=== PATIENT | female | born 1975 | race Caucasian/White ===

== ENCOUNTER 2016-06-22 17:15 | Observation (INO) | payer OTHER, MEDICAID ==
--- NOTE | 2016-06-22 17:56 | DR.H&P ---
H&P - History & Physical for Day of: H&P Date: 06/22/16 - Chief Complaint Chief Complaint: ABD PAIN WITH EPIGASTRIC AND RLQ PAIN - Allergies Allergies/Adverse Reactions: Allergies Allergy/AdvReac Type Severity Reaction Status Date / Time Ciprofloxacin [From Cipro] Allergy Verified 05/07/16 14:04 Doxycycline Allergy Verified 05/07/16 14:10 Gentamicin Allergy Verified 05/07/16 14:10 Iodine Allergy Verified 05/07/16 14:10 Latex Allergy Verified 05/07/16 14:10 Levofloxacin [From Levaquin] Allergy Verified 05/07/16 14:10 Linezolid [From Zyvox] Allergy Verified 05/07/16 14:10 Penicillins Allergy Verified 05/07/16 14:10 Pineapple Allergy Verified 05/07/16 14:10 Pseudoephedrine Allergy Verified 05/07/16 14:10 [From Sudafed] Shellfish Allergy Allergy Verified 05/07/16 14:10 Shrimp Flavor Allergy Verified 05/07/16 14:10 Sulfa Antibiotics Allergy Verified 05/07/16 14:10 Tetracycline Allergy Verified 05/07/16 14:10 Tobramycin Allergy Verified 05/07/16 14:10 adhesive tape Allergy Uncoded 05/07/16 14:10 description Allergy Uncoded 05/07/16 14:10 pears Allergy Uncoded 05/07/16 14:10 - History of Present Illness History of Present Illness: This is a 40 year old white female, who presents to [facility] for evaluation of stomach pain. Crying with pain. States she can't eat due to pain. Denies nausea and vomiting. Denies diarrhea. Complains of epigastric pain that is worse after eating palauan. Does have a hx PUD. Does complain of dry mouth. Complains of pain to RLQ pain and describes as severe and cramping in nature. States has had low grade fever. - Past Medical History Past Medical History: Anemia, Anxiety, Arthritis, Depression, Dyslipidemia, GERD , Hypertension Additional Medical History: UTI, Bilateral Knee pain - Past Surgical History Surgical History: Cholecystectomy, Tonsillectomy - Social History Does patient currently use any type of tobacco product: No Have you used tobacco products in the last 12 months: No Type of Tobacco Use: None Alcohol Use: None Drug Use: None - Review of Systems Constitutional: No Symptoms Reported Eyes: No Symptoms Reported ENT: No Symptoms Reported Respiratory: No Symptoms Reported Cardiovascular: No Symptoms Reported Gastrointestinal: See HPI, Abdominal Pain Genitourinary: No Symptoms Reported Musculoskeletal: No Symptoms Reported Skin: No Symptoms Reported Neurological: No Symptoms Reported - Physical Exam Vital Signs: Blood Pressure [Left Arm] 103/51 Blood Pressure 103/51 Oriented: Normal Eyes: Normal Ear: Normal Nose: Normal Throat: Normal Respiratory: Clear Throughout Cardiovascular: Normal : Normal Auscultation: Bowel Sounds: Normal Palpation: Other (+ Rebound tenderness to RLQ and Straight leg raise.) Tenderness: RLQ, Epigastric, Moderate, Rebound (+ Rebound tenderness to RLQ and Straight leg raise.) Skin: Normal Musculoskeletal: Normal Psychiatric: Normal Mood Description: Calm (with crying) Affect: Normal Speech Pattern: Clear - Assessment/Plan (1) Abdominal pain Qualifiers: Abdominal location: right lower quadrant Qualified Code(s): R10.31 - Right lower quadrant pain Status: Acute Plan: CBC, CMP, CT ABD without contrast. Invanz. (2) PUD (peptic ulcer disease) Status: Acute Plan: Protonix. CT ABD, Labs.
[2016-06-22] MEDS ORDERED: PHENERGAN INJ 25 MG IVP PRN (18:33)
[2016-06-22] MEDS ORDERED: MORPHINE SULFATE INJ 2 MG IVP PRN (18:33)
[2016-06-22] MEDS ORDERED: ZOFRAN INJ 4 MG VIAL IVP PRN (18:33)
[2016-06-22 19:55] LABS: ALANINE AMINOTRANSFERASE 67 Units/L (12-78); ALBUMIN 3.1 g/dL (3.4-5.0); ALKALINE PHOSPHATASE 78 Units/L (46-116); AMYLASE 56 Units/L (25-115); ASPARTATE AMINO TRANSFERASE 37 Units/L (15-37); BLOOD UREA NITROGEN 7 mg/dL (7-18); CALCIUM 8.6 mg/dL (8.5-10.1); CARBON DIOXIDE 29.8 mmol/L (21-32); CHLORIDE 100 mmol/L (98-107); COR CA(FOR HYPOALB) 9.3 mg/dL (8.5-10.1); CREATININE 1.12 mg/dL (0.55-1.02); GLUCOSE 94 mg/dL (65-99); LIPASE 96 Units/L (73-393); SODIUM 139 mmol/L (136-145); TOTAL PROTEIN 8.6 g/dL (6.4-8.2); eGFR BLACK RACES > 60 (>60); eGFR NON BLACK RACES 57 (>60)
[2016-06-22] MEDS ORDERED: POTASSIUM CHLORIDE LIQ 20 MEQ UDC PO PRN (23:07)
[2016-06-22] MEDS ORDERED: K-DUR TAB 20 MEQ PO PRN (23:07)
[2016-06-22] MEDS ORDERED: K-LYTE EFFERVESCENT PO PRN (23:07)
--- NOTE | 2016-06-23 01:08 | CT ---
CT abdomen and pelvis without contrast Indication: Abdominal pain Comparison: 05/07/2016 Technique: Multiple axial images of the abdomen and pelvis were obtained from the lung bases to the pubic symph ysis without the administration of IV contrast. Radiation dose reduction techniques were performed utilizing adjustment for MA/kVP based on patient body size. Findings: The lung bases are clear. The liver is without focal hepatic lesion given the limitations of a nonco ntrast examination. Previous cholecystectomy is noted. Bile ducts are normal in caliber. The spleen, pancreas and adrenal glands are normal. Neither kidney demonstrates evidence of nephrolithiasis, hy dronephrosis or mass. Upper GI tract is without evidence of mass or obstruction. Urinary bladder is normal. No pelvic or adnexal mass identified. Small round soft tissue densities are noted within the left adnexa on axial image 69 similar to prior examination potentially representing the left ovary. No discrete cystic or solid mass identified within either adnexa. The rectum and colon are normal. The appendix is normal. No inflammatory change within the pelvis or right lower quadrant. No free fl uid. No adenopathy. Abdominal aorta is normal in caliber. Review of bone windows demonstrates no acu te osseous abnormality. Impression: Given the limitations of a noncontrast examination no acute inflammatory process identified within t he abdomen or pelvis. Specifically, the appendix is normal. Reported By:
[2016-06-23] MEDS: NS 1000 ML 1,000 ML IV SCH ×3 (01:58→21:14)
[2016-06-23] MEDS: PROTONIX INJ 40 MG VIAL 40 MG in NS 50 ML IV 50 ML IV SCH ×2 (01:58→14:49)
[2016-06-23] MEDS: INVANZ INJ 1 GM VIAL 1 GM in NS 50 ML IV + SPIKE MINIBAG* 50 ML IV SCH ×2 (01:59→19:10)
[2016-06-23 02:02] LABS: BILIRUBIN,URINE NEGATIVE (NEGATIVE); BLOOD/HEMOGLOBIN,URINE 3+ (NEGATIVE); GLUCOSE, URINE NEGATIVE (NEGATIVE); KETONES,URINE NEGATIVE (NEGATIVE); LEUKOCYTE ESTERASE ,URINE 1+ (NEGATIVE); NITRITES,URINE NEGATIVE (NEGATIVE); PROTEIN,URINE 2+ (NEGATIVE); UROBILINOGEN,URINE 1+ (NORMAL)
[2016-06-23 02:03] LABS: APPEARANCE,URINE SLIGHTLY HAZY (CLEAR); BACTERIA,URINE TRACE /HPF (NEGATIVE); COLOR,URINE YELLOW (YELLOW); RBC,URINE 0-3 /HPF (NEGATIVE); SQUAMOUS EPITHELIAL CELL,UR NUMEROUS /HPF (NEGATIVE)
[2016-06-23 06:16] LABS: BLOOD UREA NITROGEN 6 mg/dL (7-18); CALCIUM 8.2 mg/dL (8.5-10.1); CARBON DIOXIDE 28.1 mmol/L (21-32); CHLORIDE 103 mmol/L (98-107); CREATININE 1.06 mg/dL (0.55-1.02); GLUCOSE 87 mg/dL (65-99); SODIUM 140 mmol/L (136-145); eGFR BLACK RACES > 60 (>60); eGFR NON BLACK RACES > 60 (>60)
[2016-06-23 06:21] LABS: BASOPHILS # (AUTO) 0.1 X10^3/uL (0.0-0.1); BASOPHILS % (AUTO) 0.9 % (0.2-1.0); EOSINOPHILS # (AUTO) 0.1 x10^3/uL (0.0-0.2); EOSINOPHILS % (AUTO) 0.9 % (0.9-2.9); HEMATOCRIT 36.2 % (36.0-47.0); HEMOGLOBIN 11.8 g/dL (12.0-16.0); LYMPHOCYTES # (AUTO) 2.8 X10^3/uL (1.3-2.9); LYMPHOCYTES % (AUTO) 24.1 % (21.0-51.0); MEAN CORPUSCULAR HGB CONC 32.6 g/dL (33.0-35.0); MEAN CORPUSCULAR VOLUME 73.6 fL (80.0-100.0); MEAN PLATELET VOLUME 7.4 fL (7.4-11.0); MONOCYTES # (AUTO) 0.9 x10^3/uL (0.3-0.8); MONOCYTES % (AUTO) 7.8 % (0.0-13.0); NEUTROPHILS # (AUTO) 7.8 x10^3/uL (2.2-4.8); NEUTROPHILS % (AUTO) 66.3 % (42.0-75.0); PLATELET COUNT 355 X10^3/uL (150.0-450.0); RED BLOOD COUNT 4.92 X10^6/uL (3.5-5.4); RED CELL DISTRIBUTION WIDTH 14.6 % (11.6-16.5); WHITE BLOOD COUNT 11.7 X10^3/uL (3.6-10.0)
[2016-06-23] MEDS: K-RIDER 10 MEQ/NS 100 ML 10 MEQ/100 ML BAG IV PRN ×2 (06:45→09:45)
[2016-06-23 07:51] LABS: HYPOCHROMASIA SLIGHT; PLATELET MORPHOLOGY COMMENT NORMAL (NORMAL)
[2016-06-23 07:53] LABS: MICROCYTOSIS SLIGHT
[2016-06-23] MEDS ORDERED: KLONOPIN TAB 1 MG PO PRN (08:27)
[2016-06-23] MEDS ORDERED: NORCO 10/325 TAB PO PRN (08:27)
[2016-06-23] MEDS ORDERED: ANTIVERT TAB 25 MG PO PRN (08:27)
[2016-06-23] MEDS ORDERED: AMBIEN PO PRN (08:27)
[2016-06-23] MEDS: COREG TAB 25 MG PO SCH ×2 (10:08→21:16)
[2016-06-23] MEDS: ZYRTEC TAB 10 MG PO SCH (10:09)
[2016-06-23] MEDS: CYMBALTA PO SCH (10:09)
[2016-06-23] MEDS: PRILOSEC PO SCH ×2 (10:09→21:16)
[2016-06-23] MEDS: NORVASC TAB 5 MG PO SCH (10:09)
[2016-06-23] MEDS ORDERED: EFFEXOR XR 75 MG CAP PO SCH (21:00)
[2016-06-23] MEDS ORDERED: PROZAC PO SCH (21:00)
[2016-06-24] MEDS: NS 1000 ML 1,000 ML IV SCH ×2 (01:16→11:09)
[2016-06-24 06:11] LABS: BLOOD UREA NITROGEN 8 mg/dL (7-18); CALCIUM 8.4 mg/dL (8.5-10.1); CARBON DIOXIDE 26.4 mmol/L (21-32); CHLORIDE 107 mmol/L (98-107); COR NA(FOR HYPERGLY) 142 mmol/L (136-145); CREATININE 0.98 mg/dL (0.55-1.02); GLUCOSE 125 mg/dL (65-99); SODIUM 141 mmol/L (136-145); eGFR BLACK RACES > 60 (>60); eGFR NON BLACK RACES > 60 (>60)
[2016-06-24 06:21] LABS: BASOPHILS # (AUTO) 0.1 X10^3/uL (0.0-0.1); EOSINOPHILS # (AUTO) 0.1 x10^3/uL (0.0-0.2); EOSINOPHILS % (AUTO) 1.3 % (0.9-2.9); HEMATOCRIT 34.6 % (36.0-47.0); HEMOGLOBIN 11.5 g/dL (12.0-16.0); LYMPHOCYTES # (AUTO) 2.9 X10^3/uL (1.3-2.9); LYMPHOCYTES % (AUTO) 33.8 % (21.0-51.0); MEAN CORPUSCULAR HEMOGLOBIN 24.4 pg (27.0-34.0); MEAN CORPUSCULAR HGB CONC 33.2 g/dL (33.0-35.0); MEAN CORPUSCULAR VOLUME 73.7 fL (80.0-100.0); MEAN PLATELET VOLUME 7.9 fL (7.4-11.0); MONOCYTES # (AUTO) 0.8 x10^3/uL (0.3-0.8); MONOCYTES % (AUTO) 9.8 % (0.0-13.0); NEUTROPHILS # (AUTO) 4.7 x10^3/uL (2.2-4.8); NEUTROPHILS % (AUTO) 54.1 % (42.0-75.0); PLATELET COUNT 334 X10^3/uL (150.0-450.0); RED BLOOD COUNT 4.69 X10^6/uL (3.5-5.4); RED CELL DISTRIBUTION WIDTH 14.7 % (11.6-16.5); WHITE BLOOD COUNT 8.7 X10^3/uL (3.6-10.0)
[2016-06-24 07:24] LABS: HYPOCHROMASIA SLIGHT; PLATELET MORPHOLOGY COMMENT NORMAL (NORMAL)
[2016-06-24 07:25] LABS: MICROCYTOSIS SLIGHT
[2016-06-24 09:44] VITALS: BMI 63.8
[2016-06-24] MEDS: COREG TAB 25 MG PO SCH (09:49)
[2016-06-24] MEDS: PROTONIX INJ 40 MG VIAL 40 MG in NS 50 ML IV 50 ML IV SCH (09:49)
[2016-06-24] MEDS: ZYRTEC TAB 10 MG PO SCH (09:49)
[2016-06-24] MEDS: PRILOSEC PO SCH (09:49)
[2016-06-24] MEDS: NORVASC TAB 5 MG PO SCH (09:49)
[2016-06-24] MEDS: CYMBALTA PO SCH (09:55)
[2016-06-24 14:27] VITALS: BP 113/63
== END 2016-06-24 15:25 | disposition home or self-care (01) ==
LOC: MED/SURG 17:15
PROVIDERS: ADMIT Internal Medicine; ATTEND Internal Medicine
DX: R10.31 Right lower quadrant pain (principal); R10.13 Epigastric pain; M13.89 Other specified arthritis, multiple sites; F32.89 Other specified depressive episodes; E78.2 Mixed hyperlipidemia; K21.9 Gastro-esophageal reflux disease without esophagitis; I10 Essential (primary) hypertension; K27.9 Peptic ulcer, site unspecified, unspecified as acute or chronic, without hemorrhage or perforation; E87.6 Hypokalemia
CPT/HCPCS: 36415; 74176; 80048; 80053; 81001; 82150; 83690; 84132; 85025; 93005; 93010; 99217; 99218; A4222; C9113; G0378; J1335; J3480

== ENCOUNTER 2016-12-19 13:03 | Inpatient (IN) | payer OTHER, MEDICAID ==
--- NOTE | 2016-12-19 14:12 | DR.H&P ---
H&P - History & Physical for Day of: H&P Date: 12/19/16 - Chief Complaint Chief Complaint: cough, fever, bilateral ear pain - Allergies Allergies/Adverse Reactions: Allergies Allergy/AdvReac Type Severity Reaction Status Date / Time MS Ciprofloxacin [From Cipro] Allergy Verified 05/07/16 14:04 MS Doxycycline [Doxycycline] Allergy Verified 05/07/16 14:10 MS Gentamicin [Gentamicin] Allergy Verified 05/07/16 14:10 MS Iodine [Iodine] Allergy Verified 05/07/16 14:10 MS Latex [Latex] Allergy Verified 05/07/16 14:10 MS Levofloxacin Allergy Verified 05/07/16 14:10 [From Levaquin] MS Linezolid [From Zyvox] Allergy Verified 05/07/16 14:10 MS Penicillins [Penicillins] Allergy Verified 05/07/16 14:10 MS Pineapple [Pineapple] Allergy Verified 05/07/16 14:10 MS Pseudoephedrine Allergy Verified 05/07/16 14:10 [From Sudafed] MS Shellfish Allergy Allergy Verified 05/07/16 14:10 [Shellfish Allergy] MS Shrimp Flavor Allergy Verified 05/07/16 14:10 [Shrimp Flavor] MS Sulfa Antibiotics Allergy Verified 05/07/16 14:10 [Sulfa Antibiotics] MS Tetracycline Allergy Verified 05/07/16 14:10 [Tetracycline] MS Tobramycin [Tobramycin] Allergy Verified 05/07/16 14:10 adhesive tape Allergy Uncoded 05/07/16 14:10 description Allergy Uncoded 05/07/16 14:10 pears Allergy Uncoded 05/07/16 14:10 - History of Present Illness History of Present Illness: The patient is a 41-year-old white female that is being admitted to [facility] secondary to complaints of cough, fever , and bilateral ear pain which has failed out patient treatment. The patient has been seen in the office setting multiple times for these complaints and has been treated with Zithromax 500mg daily for 10 days, Keflex 500mg BID for 10 days, Rocephin 1g IM x1 dose, dexamethazone 10mg IM x1 dose, and antibiotic ear drops. The patient continues to complain of these cold type symptoms and now complains that her ears are hurting even worse and that she has noticed wheezing at times. She states that it hurts when she breathes in as well. Subsequently, the patient will be admitted for futher workup and treatment. - Past Medical History Past Medical History: Anemia, Anxiety, Arthritis, Depression, Dyslipidemia, GERD , Hypertension Additional Medical History: UTI, Bilateral Knee pain - Past Surgical History Surgical History: Cholecystectomy, Tonsillectomy - Social History Does patient currently use any type of tobacco product: No Have you used tobacco products in the last 12 months: No Type of Tobacco Use: None Does any household member use tobacco: No Alcohol Use: None Drug Use: None - Review of Systems Constitutional: Fever Eyes: No Symptoms Reported ENT: Ear Pain, Throat Pain Respiratory: Cough, Wheezing Cardiovascular: No Symptoms Reported Gastrointestinal: No Symptoms Reported Genitourinary: No Symptoms Reported Musculoskeletal: No Symptoms Reported Skin: No Symptoms Reported Neurological: No Symptoms Reported - Physical Exam Vital Signs: Blood Pressure [Left Arm] 113/63 Blood Pressure 113/63 Oriented: Normal, Time, Person, Place Eyes: Normal Ear: Right (erythematous, bulging bilateral TMs R>L), Left (erythematous, bulging bilateral TMs R>L) Nose: Normal Throat: Red Respiratory: RLL Diminished, LLL Diminished, RLL Rhonchi, LLL Rhonchi Cardiovascular: Normal : Normal Auscultation: Bowel Sounds: Normal Palpation: Normal Tenderness: Normal Skin: Normal Musculoskeletal: Normal Psychiatric: Normal Mood Description: Calm Affect: Normal Speech Pattern: Clear - Assessment/Plan (1) Otitis media of both ears Qualifiers: Otitis media type: suppurative Chronicity: acute Recurrence: recurrent Spontaneous tympanic membrane rupture: without spontaneous rupture Qualified Code(s): H66.006 - Acute suppurative otitis media without spontaneous rupture of ear drum, recurrent, bilateral Status: Acute Plan: 1. Admit to [facility]. 2. Invanz 1g IV daily. 3. See chart for further orders. (2) Acute bronchitis Qualifiers: Bronchitis organism: unspecified organism Qualified Code(s): J20.9 - Acute bronchitis, unspecified Status: Acute Plan: Treat symptomatically. (3) Chronic sinusitis Qualifiers: Sinusitis location: pansinusitis Qualified Code(s): J32.4 - Chronic pansinusitis Status: Chronic Plan: 1. Admit to [facility]. 2. Invanz 1g IV daily. 3. See chart for further orders. (4) Failure of outpatient treatment Status: Acute Plan: 1. Admit to [facility]. 2. Invanz 1g IV daily. 3. See chart for further orders.
[2016-12-19 15:42] LABS: BASOPHILS # (AUTO) 0.2 X10^3/uL (0.0-0.1); BASOPHILS % (AUTO) 1.7 % (0.2-1.0); EOSINOPHILS # (AUTO) 0.3 x10^3/uL (0.0-0.2); HEMATOCRIT 37.5 % (36.0-47.0); HEMOGLOBIN 12.4 g/dL (12.0-16.0); LYMPHOCYTES # (AUTO) 2.5 X10^3/uL (1.3-2.9); LYMPHOCYTES % (AUTO) 19.5 % (21.0-51.0); MEAN CORPUSCULAR HEMOGLOBIN 23.2 pg (27.0-34.0); MEAN CORPUSCULAR VOLUME 70.4 fL (80.0-100.0); MEAN PLATELET VOLUME 6.9 fL (7.4-11.0); MONOCYTES # (AUTO) 0.9 x10^3/uL (0.3-0.8); MONOCYTES % (AUTO) 6.8 % (0.0-13.0); NEUTROPHILS # (AUTO) 8.9 x10^3/uL (2.2-4.8); PLATELET COUNT 401 X10^3/uL (150.0-450.0); RED BLOOD COUNT 5.32 X10^6/uL (3.5-5.4); RED CELL DISTRIBUTION WIDTH 16.9 % (11.6-16.5); WHITE BLOOD COUNT 12.8 X10^3/uL (3.6-10.0)
[2016-12-19 15:58] LABS: ALANINE AMINOTRANSFERASE 25 Units/L (12-78); ALKALINE PHOSPHATASE 86 Units/L (46-116); ASPARTATE AMINO TRANSFERASE 18 Units/L (15-37); BLOOD UREA NITROGEN 12 mg/dL (7-18); CARBON DIOXIDE 29.5 mmol/L (21-32); CHLORIDE 101 mmol/L (98-107); COR CA(FOR HYPOALB) 9.8 mg/dL (8.5-10.1); CREATININE 1.05 mg/dL (0.55-1.02); SODIUM 135 mmol/L (136-145); TOTAL PROTEIN 8.6 g/dL (6.4-8.2); eGFR BLACK RACES > 60 (>60); eGFR NON BLACK RACES > 60 (>60)
[2016-12-19 16:04] LABS: ANISOCYTOSIS SLIGHT; HYPOCHROMASIA 1+; PLATELET MORPHOLOGY COMMENT NORMAL (NORMAL); POIKILOCYTOSIS SLIGHT
[2016-12-19 16:05] LABS: MICROCYTOSIS 1+
[2016-12-19] MEDS ORDERED: K-RIDER 10 MEQ/NS 100 ML 10 MEQ/100 ML BAG IV PRN (16:14)
[2016-12-19] MEDS ORDERED: K-LYTE EFFERVESCENT PO PRN (16:14)
[2016-12-19] MEDS ORDERED: K-DUR TAB 20 MEQ PO PRN (16:14)
[2016-12-19] MEDS ORDERED: POTASSIUM CHLORIDE LIQ 20 MEQ UDC PO PRN (16:14)
[2016-12-19] MEDS: NS 1000 ML 1,000 ML IV SCH (16:15)
[2016-12-19] MEDS: INVANZ INJ 1 GM VIAL 1 GM in NS 50 ML IV + SPIKE MINIBAG* 50 ML IV SCH (16:15)
[2016-12-19 16:32] VITALS: BMI 55.9
[2016-12-19 21:34] LABS: APPEARANCE,URINE SLIGHTLY HAZY (CLEAR); BACTERIA,URINE TRACE /HPF (NEGATIVE); BILIRUBIN,URINE NEGATIVE (NEGATIVE); BLOOD/HEMOGLOBIN,URINE 4+ (NEGATIVE); COLOR,URINE DARK YELLOW (YELLOW); GLUCOSE, URINE NEGATIVE (NEGATIVE); KETONES,URINE NEGATIVE (NEGATIVE); LEUKOCYTE ESTERASE ,URINE 1+ (NEGATIVE); NITRITES,URINE NEGATIVE (NEGATIVE); PROTEIN,URINE 1+ (NEGATIVE); SQUAMOUS EPITHELIAL CELL,UR MODERATE /HPF (NEGATIVE); UROBILINOGEN,URINE 2+ (NORMAL)
[2016-12-19 21:35] LABS: AMORPHOUS SEDIMENT,UR TRACE /HPF (NEGATIVE)
[2016-12-20 04:54] LABS: BASOPHILS # (AUTO) 0.1 X10^3/uL (0.0-0.1); BASOPHILS % (AUTO) 0.7 % (0.2-1.0); EOSINOPHILS # (AUTO) 0.2 x10^3/uL (0.0-0.2); EOSINOPHILS % (AUTO) 2.2 % (0.9-2.9); HEMATOCRIT 33.5 % (36.0-47.0); HEMOGLOBIN 11.1 g/dL (12.0-16.0); LYMPHOCYTES # (AUTO) 2.2 X10^3/uL (1.3-2.9); LYMPHOCYTES % (AUTO) 21.1 % (21.0-51.0); MEAN CORPUSCULAR HEMOGLOBIN 23.2 pg (27.0-34.0); MEAN CORPUSCULAR HGB CONC 33.2 g/dL (33.0-35.0); MEAN CORPUSCULAR VOLUME 69.9 fL (80.0-100.0); MEAN PLATELET VOLUME 7.2 fL (7.4-11.0); MONOCYTES # (AUTO) 0.8 x10^3/uL (0.3-0.8); MONOCYTES % (AUTO) 8.1 % (0.0-13.0); NEUTROPHILS # (AUTO) 7.1 x10^3/uL (2.2-4.8); NEUTROPHILS % (AUTO) 67.9 % (42.0-75.0); PLATELET COUNT 331 X10^3/uL (150.0-450.0); RED BLOOD COUNT 4.79 X10^6/uL (3.5-5.4); WHITE BLOOD COUNT 10.4 X10^3/uL (3.6-10.0)
[2016-12-20 05:16] LABS: ALANINE AMINOTRANSFERASE 21 Units/L (12-78); ALBUMIN 2.5 g/dL (3.4-5.0); ALKALINE PHOSPHATASE 77 Units/L (46-116); ASPARTATE AMINO TRANSFERASE 20 Units/L (15-37); BLOOD UREA NITROGEN 10 mg/dL (7-18); CALCIUM 8.6 mg/dL (8.5-10.1); CARBON DIOXIDE 25.6 mmol/L (21-32); CHLORIDE 104 mmol/L (98-107); COR CA(FOR HYPOALB) 9.8 mg/dL (8.5-10.1); COR NA(FOR HYPERGLY) 137 mmol/L (136-145); CREATININE 0.97 mg/dL (0.55-1.02); SODIUM 137 mmol/L (136-145); TOTAL PROTEIN 7.4 g/dL (6.4-8.2); eGFR BLACK RACES > 60 (>60); eGFR NON BLACK RACES > 60 (>60)
[2016-12-20 05:42] LABS: HYPOCHROMASIA SLIGHT; MICROCYTOSIS 1+; PLATELET MORPHOLOGY COMMENT NORMAL (NORMAL)
[2016-12-20] MEDS: NS 1000 ML 1,000 ML IV SCH (06:11)
--- NOTE | 2016-12-20 06:54 | RAD ---
HISTORY: Cough Study: Chest AP portable Comparison: 05/08/2016 Findings: The trachea is midline. The cardiac silhouette is enlarged. No congestive heart failure is noted.. The lungs are clear without focal infiltrate or effusion. The bony thorax is unremarkable. IMPRESSION: 1. Cardiomegaly without congestive heart failure 2. Lungs clear Reported By:
[2016-12-20] MEDS ORDERED: ONDANSETRON HCL 8 MG PO PRN (09:34)
[2016-12-20] MEDS ORDERED: MECLIZINE HCL 25 MG PO PRN (09:34)
[2016-12-20] MEDS ORDERED: ZOFRAN TAB 4 MG PO PRN (09:42)
[2016-12-20] MEDS ORDERED: PATIENT'S HOME MEDICATION (Amlodipine Besylate [Amlodipine Besylate] 10 MG) PO SCH (09:45)
[2016-12-20] MEDS: NORVASC TAB 10 MG PO SCH (09:55)
[2016-12-20] MEDS: COREG TAB 25 MG PO SCH ×2 (09:55→21:00)
[2016-12-20] MEDS: INVANZ INJ 1 GM VIAL 1 GM in NS 50 ML IV + SPIKE MINIBAG* 50 ML IV SCH (09:55)
[2016-12-20] MEDS ORDERED: DUONEB 0.5 MG/3 MG ONE (09:57)
[2016-12-20] MEDS ORDERED: SALINE 3% 15 ML NEB TX NEB ONE (10:03)
[2016-12-20] MEDS: DUONEB 0.5 MG/3 MG NEB SCH ×4 (10:05→20:39)
[2016-12-20] MEDS ORDERED: NORETHINDRONE AC ETH ESTRADIOL PO SCH (21:00)
[2016-12-20] MEDS: PriLOSEC PO SCH (21:00)
[2016-12-20] MEDS ORDERED: CARVEDILOL 25 MG PO SCH (21:00)
[2016-12-20] MEDS ORDERED: VENLAFAXINE HCL 75 MG PO SCH (21:00)
[2016-12-20] MEDS ORDERED: PROzac PO SCH (21:00)
[2016-12-20] MEDS: ANTIVERT TAB 25 MG PO SCH (21:00)
[2016-12-20] MEDS ORDERED: EFFEXOR XR 75 MG CAP PO SCH (21:00)
[2016-12-20] MEDS ORDERED: FLUOXETINE HCL 20 MG PO SCH (21:00)
[2016-12-21] MEDS: DUONEB 0.5 MG/3 MG NEB SCH ×3 (01:08→08:49)
[2016-12-21 05:26] LABS: BASOPHILS # (AUTO) 0.1 X10^3/uL (0.0-0.1); BASOPHILS % (AUTO) 0.8 % (0.2-1.0); EOSINOPHILS # (AUTO) 0.2 x10^3/uL (0.0-0.2); EOSINOPHILS % (AUTO) 2.3 % (0.9-2.9); HEMATOCRIT 32.3 % (36.0-47.0); HEMOGLOBIN 10.7 g/dL (12.0-16.0); LYMPHOCYTES # (AUTO) 2.1 X10^3/uL (1.3-2.9); LYMPHOCYTES % (AUTO) 22.5 % (21.0-51.0); MEAN CORPUSCULAR HEMOGLOBIN 23.2 pg (27.0-34.0); MEAN CORPUSCULAR HGB CONC 33.1 g/dL (33.0-35.0); MEAN CORPUSCULAR VOLUME 69.9 fL (80.0-100.0); MEAN PLATELET VOLUME 7.2 fL (7.4-11.0); MONOCYTES # (AUTO) 0.9 x10^3/uL (0.3-0.8); MONOCYTES % (AUTO) 9.7 % (0.0-13.0); NEUTROPHILS # (AUTO) 6.1 x10^3/uL (2.2-4.8); NEUTROPHILS % (AUTO) 64.7 % (42.0-75.0); PLATELET COUNT 307 X10^3/uL (150.0-450.0); RED BLOOD COUNT 4.62 X10^6/uL (3.5-5.4); RED CELL DISTRIBUTION WIDTH 17.2 % (11.6-16.5); WHITE BLOOD COUNT 9.4 X10^3/uL (3.6-10.0)
[2016-12-21 05:35] LABS: ALANINE AMINOTRANSFERASE 21 Units/L (12-78); ALBUMIN 2.4 g/dL (3.4-5.0); ALKALINE PHOSPHATASE 78 Units/L (46-116); ASPARTATE AMINO TRANSFERASE 12 Units/L (15-37); BLOOD UREA NITROGEN 10 mg/dL (7-18); CALCIUM 8.5 mg/dL (8.5-10.1); CARBON DIOXIDE 25.6 mmol/L (21-32); CHLORIDE 105 mmol/L (98-107); COR CA(FOR HYPOALB) 9.8 mg/dL (8.5-10.1); COR NA(FOR HYPERGLY) 138 mmol/L (136-145); CREATININE 0.98 mg/dL (0.55-1.02); SODIUM 138 mmol/L (136-145); TOTAL PROTEIN 7.1 g/dL (6.4-8.2); eGFR BLACK RACES > 60 (>60); eGFR NON BLACK RACES > 60 (>60)
[2016-12-21 06:56] LABS: HYPOCHROMASIA SLIGHT; MICROCYTOSIS SLIGHT; PLATELET MORPHOLOGY COMMENT NORMAL (NORMAL)
[2016-12-21 08:29] VITALS: BP 125/87
[2016-12-21] MEDS: NS 1000 ML 1,000 ML IV SCH (08:29)
[2016-12-21] MEDS: PriLOSEC PO SCH (08:33)
[2016-12-21] MEDS: ANTIVERT TAB 25 MG PO SCH (08:33)
[2016-12-21] MEDS: INVANZ INJ 1 GM VIAL 1 GM in NS 50 ML IV + SPIKE MINIBAG* 50 ML IV SCH (08:33)
[2016-12-21] MEDS: NORVASC TAB 10 MG PO SCH (08:33)
[2016-12-21] MEDS: COREG TAB 25 MG PO SCH (08:33)
[2016-12-21] MEDS ORDERED: ZyrTEC TAB 10 MG PO SCH (09:00)
[2016-12-21] MEDS ORDERED: CYMBALTA PO SCH (09:00)
== END 2016-12-21 12:30 | disposition home or self-care (01) | DRG 195 ==
LOC: MED/SURG 13:03
PROVIDERS: ADMIT Internal Medicine; ATTEND Internal Medicine
DX: J18.0 Bronchopneumonia, unspecified organism (principal); H66.006 Acute suppurative otitis media without spontaneous rupture of ear drum, recurrent, bilateral; J32.4 Chronic pansinusitis; H92.03 Otalgia, bilateral; E78.2 Mixed hyperlipidemia; K21.9 Gastro-esophageal reflux disease without esophagitis; J20.8 Acute bronchitis due to other specified organisms; I10 Essential (primary) hypertension; F41.8 Other specified anxiety disorders; J45.998 Other asthma; J44.9 Chronic obstructive pulmonary disease, unspecified; E66.01 Morbid (severe) obesity due to excess calories; F32.89 Other specified depressive episodes; M15.8 Other polyosteoarthritis; J01.00 Acute maxillary sinusitis, unspecified; E87.6 Hypokalemia
CPT/HCPCS: 36415; 71010; 80053; 81001; 83735; 84132; 85025; 87040; 94640; 94760; A4216; A4222; J1335; J7620

== ENCOUNTER 2017-08-10 20:53 | Emergency (ER) | payer OTHER, MEDICAID ==
[2017-08-10 21:00] VITALS: BP 168/89; BMI 54.9
--- NOTE | 2017-08-10 21:14 | DR.GENAD ---
HPI - PCP Primary Care Physician: HEBER - HPI Comment HPI Comment: HAVING LOWER ABDOMINAL PAIN WELL. LOW GRADE FEVER FOR FEW DAYS. DENIES DYSURIA. - Complaint/Symptoms Chief Complaint Doctors Comments: NAUSEA, VOMITING TIMES 10DAYS. HEADACHE TODAY. REHYDRATED IN THE OFFICE BUT CONTINUE TO VOMIT AND IS FEELING WEAK. Chief Complaint:: N/V/D FOR THE LAST WEEK AND HALF. HEADACHE STARTED TODAY. GIVEN IVFS IN OFFICE PER . HAS ULCERS AND HERNIA. Self Treatment fo Chief Complaint: ZANTAC. MAALOX - Nurses notes reviewed Nurses Notes Review: Yes - Source History Provided: Patient - Mode of Arrival Mode of Arrival: Ambulatory - Timing Onset of Chief Complaint: 08/01/17 Came on: Suddenly - Duration Duration: Constant Duration: Days - Severity Severity: Moderate PMH - PMH Past Medical History: Yes Past Medical History: Anemia, Anxiety, Arthritis, Depression, Dyslipidemia, GERD , Hypertension Past Surgical History: Yes Surgical History: Cholecystectomy, Tonsillectomy, Other - Family History History of Family Medical Conditions: No - Social History Does patient currently use any type of tobacco product: No Have you used tobacco products in the last 12 months: No Type of Tobacco Use: None Alcohol Use: None Do you use any recreational Drugs:: No Lives Where: Home - infectious screening Have you traveled outside the country in the last 6 months?: No Isolation: Standard ROS - Review of Systems Constitutional: Fever, Weakness, Fatigue. negative: Chills Eyes: No Symptoms Reported. negative: Eye Pain, Discharge ENTM: No Symptoms Reported. negative: Ear Pain, Nose Discharge, Nose Congestion , Throat Pain Respiratoy: Short of Breath (ON EXERSION.). negative: Productive Cough, Non- Productive Cough, Wheezing, Hemoptysis Cardiovascular: No Symptoms Reported. negative: Chest Pain Gastrointestinal/Abdominal: Abdominal Pain, Nausea, Vomiting. negative: Constipation, Diarrhea Genitourinary: negative: Dysuria, Hematuria Neurological: Headache, Weakness, Dizziness Musculoskeletal: Muscle Pain Integumentary: Dryness Endocrine: No Symptoms Reported All Other Systems: Reviewed and Negative PE - Vital Signs Vitals: Temperature 99.5 F Pulse Rate 85 Respiratory Rate 16 Blood Pressure [Left Arm] 125/87 Blood Pressure 168/89 O2 Sat by Pulse Oximetry 97 - General Limitations: No Limitations General Appearance: Alert - Head Head Exam: Normal Inspection - Eyes Eye exam: Normal Appearance - ENT ENT Exam: Normal External Ear Exam External Ear Exam: Normal External Inspection TM/Canal Exam: Bilateral Normal Nose Exam: Normal Nose Exam Mouth Exam: Normal Inspection Throat Exam: Normal Inspection - Neck Neck Exam: Trachea Midline - Chest Chest Inspection: Symmetric Chest Wall Rise - Respiratory Respiratory Exam: Normal Lung Sounds Bilat Respiratory Exam: Bilateral Rhonchi, Lower Rhonchi - Cardiovascular Cardiovascular Exam: Regular Rate, Normal Rhythm, Normal Heart Sounds - Abdominal Exam Abdominal Exam: Normal Bowel Sounds, Soft, Tenderness Abdominal Tenderness: Diffuse, Moderate - Extremities Extremities Exam: Tenderness - Back Back Exam: Normal Inspection - Neurologic Neurological Exam: Alert, Oriented X3 - Psychiatric Psychiatric Exam: Normal Affect, Normal Mood - Skin Skin Exam: Normal Color MDM - Additional Information Additional Information Obtained From: Family - Differential Diagnosis Differential Diagnosis: ABDOMINAL PAINN, GASTRITIS, PACREATITIS, PUD, UTI, KIDNEY STONE Course - Treatment Treatment: SEE ORDERS. IV FLUIDS AND IV NAUSEA MED IN ED. - Reevaluation 1st: Improved - Consultation Consultation Comments: DR BUCK WILL SEE IN THE OFFICE SATURDAY IF WORSE. - Education/Counseling Education/Counseling: Patient, Family, Education Educated On: Diagnosis, Needs for Follow Up ROR - Labs Reviewed Laboratory Results Reviewed?: Yes Result Diagrams: 08/10/17 21:35 08/10/17 21:35 Laboratory: WBC 16.7 X10^3/uL (3.6-10.0) H 08/10/17 21:35 RBC 5.56 X10^6/uL (3.5-5.4) H 08/10/17 21:35 Hgb 12.3 g/dL (12.0-16.0) 08/10/17 21:35 Hct 37.5 % (36.0-47.0) 08/10/17 21:35 MCV 67.4 fL (80.0-100.0) L 08/10/17 21:35 MCH 22.2 pg (27.0-34.0) L 08/10/17 21:35 MCHC 33.0 g/dL (33.0-35.0) 08/10/17 21:35 RDW 17.1 % (11.6-16.5) H 08/10/17 21:35 Plt Count 504 X10^3/uL (150.0-450.0) H 08/10/17 21:35 Plt Count Comment Increased (ADEQUATE) A 08/10/17 21:35 MPV 7.1 fL (7.4-11.0) L 08/10/17 21:35 Neut % (Auto) 72.7 % (42.0-75.0) 08/10/17 21:35 Lymph % (Auto) 17.8 % (21.0-51.0) L 08/10/17 21:35 [place] % (Auto) 7.5 % (0.0-13.0) 08/10/17 21:35 Eos % (Auto) 0.9 % (0.9-2.9) 08/10/17 21:35 Baso % (Auto) 1.1 % (0.2-1.0) H 08/10/17 21:35 Neut # (Auto) 12.1 x10^3/uL (2.2-4.8) H 08/10/17 21:35 Lymph # (Auto) 3.0 X10^3/uL (1.3-2.9) H 08/10/17 21:35 [place] # (Auto) 1.3 x10^3/uL (0.3-0.8) H 08/10/17 21:35 Eos # (Auto) 0.2 x10^3/uL (0.0-0.2) 08/10/17 21:35 Baso # (Auto) 0.2 X10^3/uL (0.0-0.1) H 08/10/17 21:35 Absolute Nucleated RBC 0.0 /100WBC 08/10/17 21:35 Total Counted 100 08/10/17 21:35 Neutrophils % (Manual) 75 % (39-76) 08/10/17 21:35 Band Neutrophils % 1 % (0-10) 08/10/17 21:35 Lymphocytes % (Manual) 19 % (13-43) 08/10/17 21:35 Monocytes % (Manual) 3 % (4-9) L 08/10/17 21:35 Eosinophils % (Manual) 2 % (0-6) 08/10/17 21:35 Plt Morphology Comment Normal (NORMAL) 08/10/17 21:35 RBC Morphology Abnormal (NORMAL) A 08/10/17 21:35 Hypochromasia 1+ A 08/10/17 21:35 Microcytosis 1+ A 08/10/17 21:35 Sodium 136 mmol/L (136-145) 08/10/17 21:35 Corrected Sodium 136 mmol/L (136-145) 08/10/17 21:35 Potassium 3.5 mmol/L (3.5-5.1) 08/10/17 21:35 Chloride 101 mmol/L (98-107) 08/10/17 21:35 Carbon Dioxide 25.0 mmol/L (21-32) 08/10/17 21:35 BUN 11 mg/dL (7-18) 08/10/17 21:35 Creatinine 1.06 mg/dL (0.55-1.02) H 08/10/17 21:35 Est GFR (MDRD) Af Amer > 60 (>60) 08/10/17 21:35 Est GFR (MDRD) Non-Af > 60 (>60) 08/10/17 21:35 Glucose 120 mg/dL (65-99) H 08/10/17 21:35 Calcium 8.3 mg/dL (8.5-10.1) L 08/10/17 21:35 Corrected Calcium 8.9 mg/dL (8.5-10.1) 08/10/17 21:35 Total Bilirubin 0.40 mg/dL (0.2-1.0) 08/10/17 21:35 AST 16 Units/L (15-37) 08/10/17 21:35 ALT 23 Units/L (12-78) 08/10/17 21:35 Alkaline Phosphatase 104 Units/L (46-116) 08/10/17 21:35 Total Protein 8.6 g/dL (6.4-8.2) H 08/10/17 21:35 Albumin 3.3 g/dL (3.4-5.0) L 08/10/17 21:35 Globulin 5.3 g/dL (2.5-4.5) H 08/10/17 21:35 Albumin/Globulin Ratio 0.6 Ratio (1.1-2.1) L 08/10/17 21:35 Amylase 53 Units/L (25-115) 08/10/17 21:35 Lipase 81 Units/L (73-393) 08/10/17 21:35 Specimen Type Clean catch urine 08/10/17 21:24 Urine Color [place] (YELLOW) 08/10/17 21:24 Urine Appearance Slightly hazy (CLEAR) 08/10/17 21:24 Urine pH 5.0 (5.0 - 8.0) 08/10/17 21:24 Ur Specific [place] 1.020 (1.000-1.030) 08/10/17 21:24 Urine Protein 3+ (NEGATIVE) 08/10/17 21:24 Urine Glucose (UA) 1+ (NEGATIVE) 08/10/17 21:24 Urine Ketones 1+ (NEGATIVE) 08/10/17 21:24 Urine Occult Blood 4+ (NEGATIVE) 08/10/17 21:24 Urine Nitrite Negative (NEGATIVE) 08/10/17 21:24 Urine Bilirubin 2+ (NEGATIVE) 08/10/17 21:24 Urine Urobilinogen 2+ (NORMAL) 08/10/17 21:24 Ur Leukocyte Esterase 1+ (NEGATIVE) 08/10/17 21:24 Urine RBC 5-10 /HPF (NONE SEEN) 08/10/17 21:24 Urine WBC 3-5 /HPF (NONE SEEN) 08/10/17 21:24 Ur Squamous Epith Cells Numerous /HPF (NEGATIVE) 08/10/17 21:24 Urine Bacteria Trace /HPF (NEGATIVE) 08/10/17 21:24 Hyaline Casts Few /LPF (NEGATIVE) 08/10/17 21:24 Urine Mucus Numerous /HPF (NEGATIVE) 08/10/17 21:24 Ur Culture Indicated? No/not indicated 08/10/17 21:24 - XRAY XRAY Findings: REPORT DISCUSS WITH PATIENT. - Diagnosis Discharge Problem: Abdominal pain, UTI (urinary tract infection), Vomiting, Dehydration - Discharge Plan Condition: Stable Prescriptions: Cefdinir [Omnicef Cap 300 mg] 300 mg PO BID #20 cap Promethazine HCl [PHENERGAN TAB 25 MG *] 25 mg PO Q6H PRN #20 tab PRN Reason: Nausea/Vomiting - Follow ups/Referrals Follow ups/Referrals: GIANA BUCK [Primary Care Provider] - 3 days - Instructions Instructions: Abdominal Pain, Adult, Nausea and Vomiting, Adult, [id number], Urinary Tract Infection, Adult, [id number] Additional Instructions: RETURN TO ED IF WORSE.
[2017-08-10] MEDS ORDERED: ZOFRAN INJ 4 MG VIAL IM ONE (21:21)
[2017-08-10] MEDS ORDERED: ZOFRAN INJ 4 MG VIAL ONE (21:23)
[2017-08-10 21:52] LABS: BASOPHILS # (AUTO) 0.2 X10^3/uL (0.0-0.1); BASOPHILS % (AUTO) 1.1 % (0.2-1.0); EOSINOPHILS # (AUTO) 0.2 x10^3/uL (0.0-0.2); EOSINOPHILS % (AUTO) 0.9 % (0.9-2.9); HEMATOCRIT 37.5 % (36.0-47.0); HEMOGLOBIN 12.3 g/dL (12.0-16.0); LYMPHOCYTES % (AUTO) 17.8 % (21.0-51.0); MEAN CORPUSCULAR HEMOGLOBIN 22.2 pg (27.0-34.0); MEAN CORPUSCULAR VOLUME 67.4 fL (80.0-100.0); MEAN PLATELET VOLUME 7.1 fL (7.4-11.0); MONOCYTES # (AUTO) 1.3 x10^3/uL (0.3-0.8); MONOCYTES % (AUTO) 7.5 % (0.0-13.0); NEUTROPHILS # (AUTO) 12.1 x10^3/uL (2.2-4.8); NEUTROPHILS % (AUTO) 72.7 % (42.0-75.0); PLATELET COUNT 504 X10^3/uL (150.0-450.0); RED BLOOD COUNT 5.56 X10^6/uL (3.5-5.4); RED CELL DISTRIBUTION WIDTH 17.1 % (11.6-16.5); WHITE BLOOD COUNT 16.7 X10^3/uL (3.6-10.0)
[2017-08-10 21:54] LABS: BILIRUBIN,URINE 2+ (NEGATIVE); BLOOD/HEMOGLOBIN,URINE 4+ (NEGATIVE); GLUCOSE, URINE 1+ (NEGATIVE); KETONES,URINE 1+ (NEGATIVE); LEUKOCYTE ESTERASE ,URINE 1+ (NEGATIVE); NITRITES,URINE NEGATIVE (NEGATIVE); PROTEIN,URINE 3+ (NEGATIVE); UROBILINOGEN,URINE 2+ (NORMAL)
[2017-08-10 22:06] LABS: ALANINE AMINOTRANSFERASE 23 Units/L (12-78); ALBUMIN 3.3 g/dL (3.4-5.0); ALKALINE PHOSPHATASE 104 Units/L (46-116); AMYLASE 53 Units/L (25-115); ASPARTATE AMINO TRANSFERASE 16 Units/L (15-37); BLOOD UREA NITROGEN 11 mg/dL (7-18); CALCIUM 8.3 mg/dL (8.5-10.1); CHLORIDE 101 mmol/L (98-107); COR CA(FOR HYPOALB) 8.9 mg/dL (8.5-10.1); COR NA(FOR HYPERGLY) 136 mmol/L (136-145); CREATININE 1.06 mg/dL (0.55-1.02); LIPASE 81 Units/L (73-393); SODIUM 136 mmol/L (136-145); TOTAL PROTEIN 8.6 g/dL (6.4-8.2); eGFR BLACK RACES > 60 (>60); eGFR NON BLACK RACES > 60 (>60)
[2017-08-10 22:14] LABS: BAND NEUTROPHILS % 1 % (0-10)
[2017-08-10 22:15] LABS: APPEARANCE,URINE SLIGHTLY HAZY (CLEAR); BACTERIA,URINE TRACE /HPF (NEGATIVE); COLOR,URINE AMBER (YELLOW); SQUAMOUS EPITHELIAL CELL,UR NUMEROUS /HPF (NEGATIVE)
[2017-08-10 22:15] LABS: HYPOCHROMASIA 1+; MICROCYTOSIS 1+; PLATELET MORPHOLOGY COMMENT NORMAL (NORMAL)
[2017-08-10 22:16] LABS: HYALINE CASTS, URINE FEW /LPF (NEGATIVE); MUCUS,URINE NUMEROUS /HPF (NEGATIVE)
--- NOTE | 2017-08-10 22:53 | CT ---
CT abdomen and pelvis without contrast Indication: Headache with vomiting Comparison: 06/22/2016 Technique: Multiple axial images of the abdomen and pelvis were obtained from the lung bases to the pubic symphy sis without the administration of IV contrast. Findings: The lung bases are clear. No focal hepatic lesion identified given limitations of a non contrast exam ination. Previous cholecystectomy is noted. Bile ducts are normal in caliber. The spleen, pancreas an d adrenal glands are normal. Neither kidney demonstrates evidence of nephrolithiasis, hydronephrosis or mass. Upper GI tract demonstrates no evidence of mass or obstruction. The urinary bladder is colla psed. No pelvic or adnexal mass. The rectum and colon along with the appendix are normal. No pelvic f ree fluid or adenopathy. Abdominal aorta is normal in caliber. Review of bone windows demonstrates no acute osseous abnormality. Impression: No acute inflammatory process within the abdomen or pelvis given limitations of a noncont rast examination. Reported By:
[2017-08-10] MEDS ORDERED: NS 1000 ML 1,000 ML IV ONE (23:26)
[2017-08-10] MEDS ORDERED: NS 1000 ML 1,000 ML ONE (23:27)
[2017-08-11] MEDS ORDERED: PHENERGAN INJ 25 MG IV ONE (00:09)
[2017-08-11] MEDS ORDERED: PHENERGAN INJ 25 MG ONE (00:13)
[2017-08-11] MEDS ORDERED: ROCEPHIN 1 GM IV PREMIX 1 GM/50 ML IV.SOLN. IV ONE ×2 (00:31→00:34)
== END 2017-08-11 01:07 | disposition home or self-care (01) ==
LOC: ER 20:53
DX: R10.84 Generalized abdominal pain (principal); N39.0 Urinary tract infection, site not specified; R11.10 Vomiting, unspecified; E86.0 Dehydration; R73.9 Hyperglycemia, unspecified
CPT/HCPCS: 36415; 74176; 80053; 81001; 82150; 83690; 85025; 96365; 96367; 96372; 96374; 96375; 99283; A4222; J0696; J2405; J2550

== ENCOUNTER 2017-10-08 20:01 | Observation (INO) ==
[2017-10-08] MEDS ORDERED: MORPHINE SULFATE INJ 2 MG INJ IVP PRN (21:07)
[2017-10-08 21:37] LABS: BASOPHILS # (AUTO) 0.2 X10^3/uL (0.0-0.1); BASOPHILS % (AUTO) 1.3 % (0.2-1.0); EOSINOPHILS # (AUTO) 0.1 x10^3/uL (0.0-0.2); EOSINOPHILS % (AUTO) 0.6 % (0.9-2.9); HEMATOCRIT 36.4 % (36.0-47.0); HEMOGLOBIN 11.9 g/dL (12.0-16.0); LYMPHOCYTES # (AUTO) 2.7 X10^3/uL (1.3-2.9); LYMPHOCYTES % (AUTO) 16.5 % (21.0-51.0); MEAN CORPUSCULAR HEMOGLOBIN 22.3 pg (27.0-34.0); MEAN CORPUSCULAR HGB CONC 32.8 g/dL (33.0-35.0); MEAN CORPUSCULAR VOLUME 68.1 fL (80.0-100.0); MONOCYTES % (AUTO) 6.3 % (0.0-13.0); NEUTROPHILS # (AUTO) 12.6 x10^3/uL (2.2-4.8); NEUTROPHILS % (AUTO) 75.3 % (42.0-75.0); PLATELET COUNT 447 X10^3/uL (150.0-450.0); RED BLOOD COUNT 5.34 X10^6/uL (3.5-5.4); RED CELL DISTRIBUTION WIDTH 16.8 % (11.6-16.5); WHITE BLOOD COUNT 16.7 X10^3/uL (3.6-10.0)
[2017-10-08 21:52] LABS: ALANINE AMINOTRANSFERASE 42 Units/L (12-78); ALBUMIN 2.9 g/dL (3.4-5.0); ALKALINE PHOSPHATASE 94 Units/L (46-116); ASPARTATE AMINO TRANSFERASE 28 Units/L (15-37); BLOOD UREA NITROGEN 10 mg/dL (7-18); CALCIUM 8.8 mg/dL (8.5-10.1); CARBON DIOXIDE 25.8 mmol/L (21-32); CHLORIDE 100 mmol/L (98-107); COR CA(FOR HYPOALB) 9.7 mg/dL (8.5-10.1); COR NA(FOR HYPERGLY) 138 mmol/L (136-145); CREATININE 0.93 mg/dL (0.55-1.02); SODIUM 137 mmol/L (136-145); TOTAL PROTEIN 8.2 g/dL (6.4-8.2); eGFR NON BLACK RACES > 60 (>60)
[2017-10-08 22:03] LABS: ANISOCYTOSIS SLIGHT; HYPOCHROMASIA 1+; MICROCYTOSIS 1+; PLATELET MORPHOLOGY COMMENT NORMAL (NORMAL)
[2017-10-08 22:18] LABS: CKMB % 2.5 % (<4); CREATINE KINASE 40 Units/L (26-192); CREATINE KINASE MB < 1.0 ng/mL (0-4.0); TROPONIN I < 0.02 ng/mL (0-1.5)
--- NOTE | 2017-10-08 22:21 | RAD ---
Indication: Chest pain Exam: Portable chest Comparison: 12/19/2016 Findings: The heart is mildly enlarged but unchanged. The pulmonary vessels are normal. No consolidat ion or effusion is seen. The bones are intact. Impression: Stable chest with no acute abnormality seen. Reported By:
[2017-10-08] MEDS ORDERED: K-LYTE EFFERVESCENT PO PRN (22:38)
[2017-10-08] MEDS ORDERED: POTASSIUM CHL 40 MEQ/NS 0.45% 500 ML IV PRN (22:38)
[2017-10-08] MEDS ORDERED: K-RIDER 10 MEQ/NS 100 ML 10 MEQ/100 ML BAG IV PRN (22:38)
[2017-10-08] MEDS ORDERED: POTASSIUM CHLORIDE LIQ 20 MEQ UDC PO PRN (22:38)
[2017-10-08] MEDS ORDERED: POTASSIUM CHL 60 MEQ/NS 0.45% 500 ML IV PRN (22:38)
[2017-10-08] MEDS ORDERED: NS 1000 ML 1,000 ML IV SCH (23:00)
[2017-10-08 23:28] LABS: BILIRUBIN,URINE 1+ (NEGATIVE); BLOOD/HEMOGLOBIN,URINE 5+ (NEGATIVE); GLUCOSE, URINE NEGATIVE (NEGATIVE); KETONES,URINE 1+ (NEGATIVE); LEUKOCYTE ESTERASE ,URINE 1+ (NEGATIVE); NITRITES,URINE NEGATIVE (NEGATIVE); PROTEIN,URINE 3+ (NEGATIVE); UROBILINOGEN,URINE 1+ (NORMAL)
--- NOTE | 2017-10-08 23:30 | DR.H&P ---
H&P - History & Physical for Day of: H&P Date: 10/08/17 - Chief Complaint Chief Complaint: chest pain - History of Present Illness History of Present Illness: The pt is a 42 y/o WF who presents as a direct admission from the office due to complaints of intermittent chest pain. The patient has c/o intermittent chest pain for several months; however, the frequency and severity has increased over the last several days. The patient also complains of SOB and fatigue with minimal exertion. Due to her obesity the pt is unable to undergo a nuclear stress test. The patient is being admitted for serial EKG's and troponin measurements with tentative plans to transfer for cardiac cath. - Past Medical History Past Medical History: Anemia, Anxiety, Arthritis, Depression, Dyslipidemia, GERD , Hypertension Additional Medical History: UTI, Bilateral Knee pain - Past Surgical History Surgical History: Cholecystectomy, Tonsillectomy, Other - Social History Does patient currently use any type of tobacco product: No Have you used tobacco products in the last 12 months: No Alcohol Use: None Drug Use: None - Medications Home Medications: ciprofloxacin [From Cipro] Allergy (Verified 08/10/17 21:01) doxycycline Allergy (Verified 08/10/17 21:01) gentamicin Allergy (Verified 08/10/17 21:01) iodine Allergy (Verified 08/10/17 21:01) latex Allergy (Verified 08/10/17 21:01) levofloxacin Allergy (Verified 08/10/17 21:01) linezolid Allergy (Verified 08/10/17 21:01) Penicillins Allergy (Verified 08/10/17 21:01) pineapple Allergy (Verified 08/10/17 21:01) pseudoephedrine Allergy (Verified 08/10/17 21:01) shrimp Allergy (Verified 08/10/17 21:01) Sulfa (Sulfonamide Antibiotics) [SULFA] Allergy (Verified 08/10/17 21:01) tetracycline Allergy (Verified 08/10/17 21:01) tobramycin Allergy (Verified 08/10/17 21:01) adhesive tape Allergy (Uncoded 08/10/17 21:01) description Allergy (Uncoded 08/10/17 21:01) pears Allergy (Uncoded 08/10/17 21:01) SHELFISH Allergy (Uncoded 08/10/17 21:01) - Review of Systems Constitutional: See HPI Eyes: No Symptoms Reported ENT: No Symptoms Reported Respiratory: See HPI Cardiovascular: See HPI Gastrointestinal: No Symptoms Reported Genitourinary: No Symptoms Reported Musculoskeletal: No Symptoms Reported Skin: No Symptoms Reported Neurological: No Symptoms Reported - Physical Exam Vital Signs: Blood Pressure [Left Arm] 125/87 Blood Pressure 168/89 Oriented: Normal Eyes: Normal Ear: Normal Nose: Normal Throat: Normal Respiratory: Clear Throughout Cardiovascular: Normal : Normal Auscultation: Bowel Sounds: Normal Palpation: Normal Tenderness: Normal Skin: Normal Musculoskeletal: Normal Psychiatric: Normal Mood Description: Calm Affect: Angry Speech Pattern: Clear - Assessment/Plan (1) Chest pain Qualifiers: Chest pain type: precordial pain Qualified Code(s): R07.2 - Precordial pain Status: Acute Plan: 1. Admit for OPO. 2. O2 at 2L/min per NC. 3. Telemetry. 4. Serial EKG's and Troponin measurements. 5. Continue home meds. 6. Tentatively plan to transfer in am for cardiac cath to [facility] in [place], [place] for cardiac cath. (2) Obesity, morbid (more than 100 lbs over ideal weight or BMI > 40) Status: Chronic Plan: see above (3) Dyspnea on exertion Status: Chronic Plan: see above - Allergies Allergies/Adverse Reactions: Allergies Allergy/AdvReac Type Severity Reaction Status Date / Time ciprofloxacin [From Cipro] Allergy Verified 08/10/17 21:01 doxycycline Allergy Verified 08/10/17 21:01 gentamicin Allergy Verified 08/10/17 21:01 iodine Allergy Verified 08/10/17 21:01 latex Allergy Verified 08/10/17 21:01 levofloxacin Allergy Verified 08/10/17 21:01 linezolid Allergy Verified 08/10/17 21:01 Penicillins Allergy Verified 08/10/17 21:01 pineapple Allergy Verified 08/10/17 21:01 pseudoephedrine Allergy Verified 08/10/17 21:01 shrimp Allergy Verified 08/10/17 21:01 Sulfa (Sulfonamide Allergy Verified 08/10/17 21:01 Antibiotics) [SULFA] tetracycline Allergy Verified 08/10/17 21:01 tobramycin Allergy Verified 08/10/17 21:01 adhesive tape Allergy Uncoded 08/10/17 21:01 description Allergy Uncoded 08/10/17 21:01 pears Allergy Uncoded 08/10/17 21:01 SHELFISH Allergy Uncoded 08/10/17 21:01
[2017-10-08 23:37] LABS: APPEARANCE,URINE CLEAR (CLEAR); BACTERIA,URINE TRACE /HPF (NEGATIVE); COLOR,URINE AMBER (YELLOW); MUCUS,URINE FEW /HPF (NEGATIVE); SQUAMOUS EPITHELIAL CELL,UR MODERATE /HPF (NEGATIVE)
[2017-10-09 00:27] VITALS: BMI 49.2
[2017-10-09] MEDS ORDERED: ZOFRAN INJ 4 MG VIAL IVP PRN (02:00)
[2017-10-09] MEDS: NITROSTAT SL PRN ×2 (02:05→02:14)
[2017-10-09 06:35] LABS: BASOPHILS # (AUTO) 0.1 X10^3/uL (0.0-0.1); EOSINOPHILS # (AUTO) 0.1 x10^3/uL (0.0-0.2); EOSINOPHILS % (AUTO) 0.9 % (0.9-2.9); HEMATOCRIT 32.7 % (36.0-47.0); HEMOGLOBIN 10.7 g/dL (12.0-16.0); LYMPHOCYTES # (AUTO) 2.6 X10^3/uL (1.3-2.9); LYMPHOCYTES % (AUTO) 20.7 % (21.0-51.0); MEAN CORPUSCULAR HEMOGLOBIN 22.4 pg (27.0-34.0); MEAN CORPUSCULAR HGB CONC 32.6 g/dL (33.0-35.0); MEAN CORPUSCULAR VOLUME 68.7 fL (80.0-100.0); MEAN PLATELET VOLUME 7.3 fL (7.4-11.0); MONOCYTES # (AUTO) 0.9 x10^3/uL (0.3-0.8); MONOCYTES % (AUTO) 7.3 % (0.0-13.0); NEUTROPHILS # (AUTO) 8.7 x10^3/uL (2.2-4.8); NEUTROPHILS % (AUTO) 70.1 % (42.0-75.0); PLATELET COUNT 415 X10^3/uL (150.0-450.0); RED BLOOD COUNT 4.76 X10^6/uL (3.5-5.4); RED CELL DISTRIBUTION WIDTH 16.5 % (11.6-16.5); WHITE BLOOD COUNT 12.4 X10^3/uL (3.6-10.0)
[2017-10-09 06:58] LABS: PLATELET MORPHOLOGY COMMENT NORMAL (NORMAL)
[2017-10-09 07:00] LABS: HYPOCHROMASIA 1+; MICROCYTOSIS 1+
[2017-10-09 07:06] LABS: ALANINE AMINOTRANSFERASE 37 Units/L (12-78); ALBUMIN 2.6 g/dL (3.4-5.0); ALKALINE PHOSPHATASE 82 Units/L (46-116); ASPARTATE AMINO TRANSFERASE 24 Units/L (15-37); BLOOD UREA NITROGEN 8 mg/dL (7-18); CALCIUM 8.5 mg/dL (8.5-10.1); CARBON DIOXIDE 28.3 mmol/L (21-32); CHLORIDE 102 mmol/L (98-107); CHOL/HDL RATIO 3.8 (0.0-5.0); CHOLESTEROL 177 mg/dL (0-200); CKMB % 2.6 % (<4); COR CA(FOR HYPOALB) 9.6 mg/dL (8.5-10.1); CREATINE KINASE 38 Units/L (26-192); CREATINE KINASE MB < 1.0 ng/mL (0-4.0); CREATININE 0.78 mg/dL (0.55-1.02); HDL CHOLESTEROL 46 mg/dL (40-60); SODIUM 138 mmol/L (136-145); TOTAL PROTEIN 7.2 g/dL (6.4-8.2); TRIGLYCERIDES 71 mg/dL (0-150); TROPONIN I < 0.02 ng/mL (0-1.5); eGFR NON BLACK RACES > 60 (>60)
[2017-10-09 09:31] LABS: CKMB % 2.7 % (<4); CREATINE KINASE 37 Units/L (26-192); CREATINE KINASE MB < 1.0 ng/mL (0-4.0); TROPONIN I < 0.02 ng/mL (0-1.5)
[2017-10-09 12:12] VITALS: BP 166/87
--- NOTE | 2017-10-19 22:42 | PCM.DCPLAN ---
Discharge Summary - Admission Date Date of Admission: 10/08/17 - Discharge Date Discharge Date: 10/09/17 - Admission Diagnoses (1) Chest pain Status: Acute (2) Obesity, morbid (more than 100 lbs over ideal weight or BMI > 40) Status: Chronic (3) Dyspnea on exertion Status: Chronic - Discharge Diagnoses Discharge Diagnosis: same as admission diagnosis - Discharge Medications Discharge Medications: Home Medication List clonazepam 1 tab PO DAILY 10/09/17 [History] clonidine HCl 1 tab PO DAILY PRN 10/09/17 [History] escitalopram oxalate [Lexapro] 20 mg PO HS 10/09/17 [History] hydrocodone-acetaminophen 1 tab PO Q8H PRN 10/09/17 [History] Prescriptions: - Hospital Course Vital Signs: Temperature 99.0 F Pulse Rate [Apical] 84 Respiratory Rate 17 Blood Pressure [Right Arm] 166/87 Blood Pressure [Left Arm] 125/87 Blood Pressure 168/89 O2 Sat by Pulse Oximetry 99 Latest Lab Results: Laboratory Last Values WBC 12.4 X10^3/uL (3.6-10.0) H 10/09/17 05:13 RBC 4.76 X10^6/uL (3.5-5.4) 10/09/17 05:13 Hgb 10.7 g/dL (12.0-16.0) L 10/09/17 05:13 Hct 32.7 % (36.0-47.0) L 10/09/17 05:13 MCV 68.7 fL (80.0-100.0) L 10/09/17 05:13 MCH 22.4 pg (27.0-34.0) L 10/09/17 05:13 MCHC 32.6 g/dL (33.0-35.0) L 10/09/17 05:13 RDW 16.5 % (11.6-16.5) 10/09/17 05:13 Plt Count 415 X10^3/uL (150.0-450.0) 10/09/17 05:13 Plt Count Comment Adequate (ADEQUATE) 10/09/17 05:13 MPV 7.3 fL (7.4-11.0) L 10/09/17 05:13 Neut % (Auto) 70.1 % (42.0-75.0) 10/09/17 05:13 Lymph % (Auto) 20.7 % (21.0-51.0) L 10/09/17 05:13 [place] % (Auto) 7.3 % (0.0-13.0) 10/09/17 05:13 Eos % (Auto) 0.9 % (0.9-2.9) 10/09/17 05:13 Baso % (Auto) 1.0 % (0.2-1.0) 10/09/17 05:13 Neut # (Auto) 8.7 x10^3/uL (2.2-4.8) H 10/09/17 05:13 Lymph # (Auto) 2.6 X10^3/uL (1.3-2.9) 10/09/17 05:13 [place] # (Auto) 0.9 x10^3/uL (0.3-0.8) H 10/09/17 05:13 Eos # (Auto) 0.1 x10^3/uL (0.0-0.2) 10/09/17 05:13 Baso # (Auto) 0.1 X10^3/uL (0.0-0.1) 10/09/17 05:13 Absolute Nucleated RBC 0.0 /100WBC 10/09/17 05:13 Plt Morphology Comment Normal (NORMAL) 10/09/17 05:13 RBC Morphology Abnormal (NORMAL) A 10/09/17 05:13 Hypochromasia 1+ A 10/09/17 05:13 Anisocytosis Slight A 10/08/17 21:25 Microcytosis 1+ A 10/09/17 05:13 INR Target Range - 10/08/17 21:25 INR 0.96 (0.8-1.3) 10/08/17 21:25 APTT 29.0 SECONDS (22.9-36.5) 10/08/17 21:25 PTT Comment - 10/08/17 21:25 Sodium 138 mmol/L (136-145) 10/09/17 05:13 Corrected Sodium TNP 10/09/17 05:13 Potassium 3.6 mmol/L (3.5-5.1) 10/09/17 05:13 Chloride 102 mmol/L (98-107) 10/09/17 05:13 Carbon Dioxide 28.3 mmol/L (21-32) 10/09/17 05:13 BUN 8 mg/dL (7-18) 10/09/17 05:13 Creatinine 0.78 mg/dL (0.55-1.02) 10/09/17 05:13 Est GFR (MDRD) Af Amer > 60 (>60) 10/09/17 05:13 Est GFR (MDRD) Non-Af > 60 (>60) 10/09/17 05:13 Glucose 110 mg/dL (65-99) H 10/09/17 05:13 Calcium 8.5 mg/dL (8.5-10.1) 10/09/17 05:13 Corrected Calcium 9.6 mg/dL (8.5-10.1) 10/09/17 05:13 Magnesium 2.0 mg/dL (1.7-2.9) 10/08/17 21:25 Total Bilirubin 0.40 mg/dL (0.2-1.0) 10/09/17 05:13 AST 24 Units/L (15-37) 10/09/17 05:13 ALT 37 Units/L (12-78) 10/09/17 05:13 Alkaline Phosphatase 82 Units/L (46-116) 10/09/17 05:13 Creatine Kinase 37 Units/L (26-192) 10/09/17 08:48 CK-MB (CK-2) < 1.0 ng/mL (0-4.0) 10/09/17 08:48 CK/CKMB % Calc 2.7 % (<4) 10/09/17 08:48 Troponin I < 0.02 ng/mL (0-1.5) 10/09/17 08:48 Total Protein 7.2 g/dL (6.4-8.2) 10/09/17 05:13 Albumin 2.6 g/dL (3.4-5.0) L 10/09/17 05:13 Globulin 4.6 g/dL (2.5-4.5) H 10/09/17 05:13 Albumin/Globulin Ratio 0.6 Ratio (1.1-2.1) L 10/09/17 05:13 Triglycerides 71 mg/dL (0-150) 10/09/17 05:13 Cholesterol 177 mg/dL (0-200) 10/09/17 05:13 LDL Cholesterol, Calc 117 mg/dL (0-100) H 10/09/17 05:13 HDL Cholesterol 46 mg/dL (40-60) 10/09/17 05:13 Cholesterol/HDL Ratio 3.8 (0.0-5.0) 10/09/17 05:13 Specimen Type Clean catch urine 10/08/17 23:04 Urine Color Kiara (YELLOW) 10/08/17 23:04 Urine Appearance Clear (CLEAR) 10/08/17 23:04 Urine pH 5.0 (5.0 - 8.0) 10/08/17 23:04 Ur Specific Garner 1.020 (1.000-1.030) 10/08/17 23:04 Urine Protein 3+ (NEGATIVE) 10/08/17 23: Urine Glucose (UA) Negative (NEGATIVE) 10/08/17 23: Urine Ketones 1+ (NEGATIVE) 10/08/17 23: Urine Occult Blood 5+ (NEGATIVE) 10/08/17 23: Urine Nitrite Negative (NEGATIVE) 10/08/17 23: Urine Bilirubin 1+ (NEGATIVE) 10/08/17 23:04 Urine Urobilinogen 1+ (NORMAL) 10/08/17 23:04 Ur Leukocyte Esterase 1+ (NEGATIVE) 10/08/17 23:04 Urine RBC 5-10 /HPF (NONE SEEN) 10/08/17 23:04 Urine WBC 0-2 /HPF (NONE SEEN) 10/08/17 23:04 Ur Squamous Epith Cells Moderate /HPF (NEGATIVE) 10/08/17 23:04 Urine Bacteria Trace /HPF (NEGATIVE) 10/08/17 23: Urine Mucus Few /HPF (NEGATIVE) 10/08/17 23:04 Ur Culture Indicated? No/not indicated 10/08/17 23:04 Hospital Course: The pt is a 42 y/o WF who presents as a direct admission from the office due to complaints of intermittent chest pain. The patient has c/o intermittent chest pain for several months; however, the frequency and severity has increased over the last several days. The patient also complains of SOB and fatigue with minimal exertion. Due to her obesity the pt is unable to undergo a nuclear stress test. The patient was admitted for serial EKG's and troponin measurements with tentative plans to transfer for cardiac cath. Labs were unremarkable. Patient was transferred to [facility] for further treatment. - Discharge Plan Disposition: [facility] Condition: Stable - Follow ups/Referrals Follow ups/Referrals: [facility] [Other] GIANA BUCK [Primary Care Provider] - 1 WEEK - Instructions
== END 2017-10-09 11:55 | disposition short-term general hospital (02) ==
LOC: ICU
PROVIDERS: ADMIT Internal Medicine; ATTEND Internal Medicine
DX: R07.2 Precordial pain; R06.02 Shortness of breath; R53.83 Other fatigue; R06.09 Other forms of dyspnea; E78.2 Mixed hyperlipidemia; D72.828 Other elevated white blood cell count; E66.01 Morbid (severe) obesity due to excess calories; I10 Essential (primary) hypertension; K21.9 Gastro-esophageal reflux disease without esophagitis; F32.89 Other specified depressive episodes; F41.8 Other specified anxiety disorders; R73.09 Other abnormal glucose
CPT/HCPCS: 36415; 71010; 71045; 80053; 80061; 81001; 82550; 82553; 83735; 84484; 85025; 85610; 85730; 93005; 93010; A4216; A4222; G0378; J2405; J3480; J7030

== ENCOUNTER 2017-12-31 11:57 | Observation (INO) ==
[2017-12-31] MEDS: NS 1000 ML 1,000 ML IV SCH (15:00)
[2017-12-31 15:16] LABS: BASOPHILS # (AUTO) 0.2 X10^3/uL (0.0-0.1); BASOPHILS % (AUTO) 1.2 % (0.2-1.0); EOSINOPHILS # (AUTO) 0.1 x10^3/uL (0.0-0.2); EOSINOPHILS % (AUTO) 1.1 % (0.9-2.9); HEMATOCRIT 36.3 % (36.0-47.0); HEMOGLOBIN 11.7 g/dL (12.0-16.0); LYMPHOCYTES # (AUTO) 2.4 X10^3/uL (1.3-2.9); LYMPHOCYTES % (AUTO) 19.7 % (21.0-51.0); MEAN CORPUSCULAR HEMOGLOBIN 22.2 pg (27.0-34.0); MEAN CORPUSCULAR HGB CONC 32.2 g/dL (33.0-35.0); MEAN CORPUSCULAR VOLUME 68.8 fL (80.0-100.0); MEAN PLATELET VOLUME 6.9 fL (7.4-11.0); MONOCYTES # (AUTO) 0.7 x10^3/uL (0.3-0.8); NEUTROPHILS # (AUTO) 8.9 x10^3/uL (2.2-4.8); PLATELET COUNT 420 X10^3/uL (150.0-450.0); RED BLOOD COUNT 5.27 X10^6/uL (3.5-5.4); RED CELL DISTRIBUTION WIDTH 16.8 % (11.6-16.5); WHITE BLOOD COUNT 12.3 X10^3/uL (3.6-10.0)
--- NOTE | 2017-12-31 15:18 | RAD ---
Exam: Portable chest History: 42 year female with generalized weakness. Hypertension. Comparison: Previous chest radiograph from 10/08/2017 Findings: Mild cardiomegaly is again noted. No significant vascular congestion however. Lungs are clear with no infiltrate or significant effusion on either side. Impression: Mild cardiomegaly, unchanged. No acute superimposed abnormality is seen on this exam Reported By:
[2017-12-31 15:44] LABS: ALANINE AMINOTRANSFERASE 14 Units/L (12-78); ALKALINE PHOSPHATASE 99 Units/L (46-116); ASPARTATE AMINO TRANSFERASE 8 Units/L (15-37); BLOOD UREA NITROGEN 10 mg/dL (7-18); CALCIUM 8.6 mg/dL (8.5-10.1); CARBON DIOXIDE 23.9 mmol/L (21-32); CHLORIDE 101 mmol/L (98-107); CKMB % 2.9 % (<4); COR CA(FOR HYPOALB) 9.4 mg/dL (8.5-10.1); CREATINE KINASE 35 Units/L (26-192); CREATINE KINASE MB < 1.0 ng/mL (0-4.0); CREATININE 0.96 mg/dL (0.55-1.02); SODIUM 137 mmol/L (136-145); TROPONIN I < 0.02 ng/mL (0-1.5); eGFR NON BLACK RACES > 60 (>60)
[2017-12-31 15:48] LABS: HYPOCHROMASIA 1+; MICROCYTOSIS 1+; PLATELET MORPHOLOGY COMMENT NORMAL (NORMAL)
[2017-12-31] MEDS ORDERED: DUONEB 0.5 MG/3 MG NEB PRN (16:28)
[2017-12-31 16:36] LABS: BILIRUBIN,URINE NEGATIVE (NEGATIVE); BLOOD/HEMOGLOBIN,URINE 3+ (NEGATIVE); GLUCOSE, URINE NEGATIVE (NEGATIVE); KETONES,URINE NEGATIVE (NEGATIVE); LEUKOCYTE ESTERASE ,URINE NEGATIVE (NEGATIVE); NITRITES,URINE NEGATIVE (NEGATIVE); PROTEIN,URINE 1+ (NEGATIVE); UROBILINOGEN,URINE NORMAL (NORMAL)
[2017-12-31 16:44] LABS: APPEARANCE,URINE CLEAR (CLEAR); BACTERIA,URINE TRACE /HPF (NEGATIVE); COLOR,URINE YELLOW (YELLOW); SQUAMOUS EPITHELIAL CELL,UR MODERATE /HPF (NEGATIVE)
[2017-12-31 16:45] LABS: MUCUS,URINE FEW /HPF (NEGATIVE)
[2017-12-31] MEDS ORDERED: KLOR-CON PO PRN (17:56)
[2017-12-31] MEDS ORDERED: POTASSIUM CHL 40 MEQ/NS 0.45% 500 ML IV PRN (17:56)
[2017-12-31] MEDS ORDERED: K-RIDER 10 MEQ/NS 100 ML 10 MEQ/100 ML BAG IV PRN (17:56)
[2017-12-31] MEDS ORDERED: MICRO K EXTEN CAP 10 MEQ PO PRN (17:56)
[2017-12-31] MEDS ORDERED: K-DUR TAB 20 MEQ PO PRN (17:56)
[2017-12-31] MEDS ORDERED: POTASSIUM CHL 60 MEQ/NS 0.45% 500 ML IV PRN (17:56)
[2017-12-31] MEDS ORDERED: POTASSIUM CHLORIDE LIQ 20 MEQ UDC PO PRN (17:56)
[2017-12-31] MEDS ORDERED: ULTRAM PO PRN (19:57)
[2017-12-31 21:24] LABS: CKMB % 2.7 % (<4); CREATINE KINASE 37 Units/L (26-192); CREATINE KINASE MB < 1.0 ng/mL (0-4.0); TROPONIN I < 0.02 ng/mL (0-1.5)
[2018-01-01 03:49] LABS: CKMB % 2.3 % (<4); CREATINE KINASE 43 Units/L (26-192); CREATINE KINASE MB < 1.0 ng/mL (0-4.0); TROPONIN I < 0.02 ng/mL (0-1.5)
[2018-01-01] MEDS: NS 1000 ML 1,000 ML IV SCH ×2 (05:41→19:12)
[2018-01-01 06:24] LABS: BASOPHILS # (AUTO) 0.1 X10^3/uL (0.0-0.1); BASOPHILS % (AUTO) 1.2 % (0.2-1.0); EOSINOPHILS # (AUTO) 0.1 x10^3/uL (0.0-0.2); EOSINOPHILS % (AUTO) 1.5 % (0.9-2.9); HEMATOCRIT 32.8 % (36.0-47.0); HEMOGLOBIN 10.7 g/dL (12.0-16.0); LYMPHOCYTES # (AUTO) 2.5 X10^3/uL (1.3-2.9); MEAN CORPUSCULAR HEMOGLOBIN 22.6 pg (27.0-34.0); MEAN CORPUSCULAR HGB CONC 32.7 g/dL (33.0-35.0); MEAN CORPUSCULAR VOLUME 69.2 fL (80.0-100.0); MEAN PLATELET VOLUME 6.9 fL (7.4-11.0); MONOCYTES # (AUTO) 0.9 x10^3/uL (0.3-0.8); MONOCYTES % (AUTO) 9.5 % (0.0-13.0); NEUTROPHILS # (AUTO) 6.2 x10^3/uL (2.2-4.8); NEUTROPHILS % (AUTO) 62.8 % (42.0-75.0); PLATELET COUNT 372 X10^3/uL (150.0-450.0); RED BLOOD COUNT 4.74 X10^6/uL (3.5-5.4); RED CELL DISTRIBUTION WIDTH 16.6 % (11.6-16.5); WHITE BLOOD COUNT 9.9 X10^3/uL (3.6-10.0)
[2018-01-01 06:33] LABS: ALANINE AMINOTRANSFERASE 8 Units/L (12-78); ALBUMIN 2.6 g/dL (3.4-5.0); ALKALINE PHOSPHATASE 92 Units/L (46-116); ASPARTATE AMINO TRANSFERASE 10 Units/L (15-37); BLOOD UREA NITROGEN 8 mg/dL (7-18); CALCIUM 8.5 mg/dL (8.5-10.1); CARBON DIOXIDE 22.5 mmol/L (21-32); CHLORIDE 102 mmol/L (98-107); COR CA(FOR HYPOALB) 9.6 mg/dL (8.5-10.1); COR NA(FOR HYPERGLY) 135 mmol/L (136-145); CREATININE 0.83 mg/dL (0.55-1.02); SODIUM 135 mmol/L (136-145); TOTAL PROTEIN 7.1 g/dL (6.4-8.2); eGFR NON BLACK RACES > 60 (>60)
[2018-01-01 06:41] VITALS: BMI 56.2
[2018-01-01 06:49] LABS: HYPOCHROMASIA 1+; MICROCYTOSIS 1+; PLATELET MORPHOLOGY COMMENT NORMAL (NORMAL)
[2018-01-01] MEDS ORDERED: NORCO 10/325 TAB PO PRN (09:22)
[2018-01-01] MEDS ORDERED: KLONOPIN TAB 1 MG PO PRN (09:22)
[2018-01-01] MEDS ORDERED: CARVEDILOL 12.5 MG PO SCH (09:30)
[2018-01-01] MEDS: ALDACTONE TAB 25 MG PO SCH (10:03)
[2018-01-01] MEDS: COREG TAB 12.5 MG PO SCH ×2 (10:04→21:33)
[2018-01-01] MEDS: LOVENOX INJ 40 MG SYR SC SCH (15:06)
[2018-01-01] MEDS ORDERED: CYMBALTA PO SCH (21:00)
[2018-01-02] MEDS: NS 1000 ML 1,000 ML IV SCH (05:30)
[2018-01-02 06:27] LABS: BASOPHILS # (AUTO) 0.1 X10^3/uL (0.0-0.1); BASOPHILS % (AUTO) 0.8 % (0.2-1.0); EOSINOPHILS # (AUTO) 0.2 x10^3/uL (0.0-0.2); EOSINOPHILS % (AUTO) 1.7 % (0.9-2.9); HEMOGLOBIN 11.7 g/dL (12.0-16.0); LYMPHOCYTES # (AUTO) 2.2 X10^3/uL (1.3-2.9); LYMPHOCYTES % (AUTO) 21.6 % (21.0-51.0); MEAN CORPUSCULAR HEMOGLOBIN 22.7 pg (27.0-34.0); MEAN CORPUSCULAR HGB CONC 32.6 g/dL (33.0-35.0); MEAN CORPUSCULAR VOLUME 69.5 fL (80.0-100.0); MONOCYTES # (AUTO) 1.1 x10^3/uL (0.3-0.8); MONOCYTES % (AUTO) 10.6 % (0.0-13.0); NEUTROPHILS # (AUTO) 6.8 x10^3/uL (2.2-4.8); NEUTROPHILS % (AUTO) 65.3 % (42.0-75.0); PLATELET COUNT 435 X10^3/uL (150.0-450.0); RED BLOOD COUNT 5.17 X10^6/uL (3.5-5.4); RED CELL DISTRIBUTION WIDTH 16.4 % (11.6-16.5); WHITE BLOOD COUNT 10.4 X10^3/uL (3.6-10.0)
[2018-01-02 06:37] LABS: ALANINE AMINOTRANSFERASE 15 Units/L (12-78); ALBUMIN 2.8 g/dL (3.4-5.0); ALKALINE PHOSPHATASE 99 Units/L (46-116); ASPARTATE AMINO TRANSFERASE 9 Units/L (15-37); BLOOD UREA NITROGEN 8 mg/dL (7-18); CALCIUM 8.9 mg/dL (8.5-10.1); CARBON DIOXIDE 27.4 mmol/L (21-32); CHLORIDE 101 mmol/L (98-107); COR CA(FOR HYPOALB) 9.9 mg/dL (8.5-10.1); COR NA(FOR HYPERGLY) 136 mmol/L (136-145); CREATININE 0.92 mg/dL (0.55-1.02); SODIUM 136 mmol/L (136-145); TOTAL PROTEIN 7.7 g/dL (6.4-8.2); eGFR NON BLACK RACES > 60 (>60)
[2018-01-02 07:25] LABS: PLATELET MORPHOLOGY COMMENT NORMAL (NORMAL)
[2018-01-02 07:26] LABS: HYPOCHROMASIA 1+; MICROCYTOSIS 1+
[2018-01-02] MEDS: COREG TAB 12.5 MG PO SCH (08:33)
[2018-01-02] MEDS: LOVENOX INJ 40 MG SYR SC SCH (08:33)
[2018-01-02] MEDS: ALDACTONE TAB 25 MG PO SCH (08:33)
[2018-01-02] MEDS ORDERED: PriLOSEC PO SCH (09:00)
[2018-01-02] MEDS ORDERED: RIFADIN CAP 300 MG PO SCH (11:00)
[2018-01-02] MEDS ORDERED: BENADRYL INJ 50 MG VIAL ONE (13:33)
[2018-01-02] MEDS: BENADRYL INJ 50 MG VIAL IVP ONE ×2 (14:00→14:42)
[2018-01-02 14:45] VITALS: BP 161/94
--- NOTE | 2018-01-15 13:23 | DR.H&P ---
H&P - History & Physical for Day of: H&P Date: 12/31/17 - Chief Complaint Chief Complaint: Uncontrolled BP - History of Present Illness History of Present Illness: The patient is a 42-year-old white female who presents for follow up of multiple medical problems. The patient states that their BP at home has been elevated. States she cannot get BP under control. States she has been having headaches and dizziness for 1 week. The patient prese nts without BP diary. The patient's BP in the office today is noted to be 179/108. The patient denies MOORE, dizziness, CP, or SOB. Patient continues to experience chronic low back pain. State medication is helping to provide relief. Patient also reports anxiety which is also controlled with medication. - Past Medical History Past Medical History: Anemia, Anxiety, Arthritis, Depression, Dyslipidemia, GERD, Hypertension Additional Medical History: UTI, Bilateral Knee pain - Past Surgical History Surgical History: Cholecystectomy, Tonsillectomy, Other - Social History Does patient currently use any type of tobacco product: No Have you used tobacco products in the last 12 months: No Type of Tobacco Use: None Alcohol Use: None Drug Use: None - Medications Home Medications: ciprofloxacin [From Cipro] Allergy (Verified 08/10/17 21:01) doxycycline Allergy (Verified 08/10/17 21:01) gentamicin Allergy (Verified 08/10/17 21:01) iodine Allergy (Verified 08/10/17 21:01) latex Allergy (Verified 08/10/17 21:01) levofloxacin Allergy (Verified 08/10/17 21:01) linezolid Allergy (Verified 08/10/17 21:01) Penicillins Allergy (Verified 08/10/17 21:01) pineapple Allergy (Verified 08/10/17 21:01) pseudoephedrine Allergy (Verified 08/10/17 21:01) shrimp Allergy (Verified 08/10/17 21:01) Sulfa (Sulfonamide Antibiotics) [SULFA] Allergy (Verified 08/10/17 21:01) tetracycline Allergy (Verified 08/10/17 21:01) tobramycin Allergy (Verified 08/10/17 21:01) adhesive tape Allergy (Uncoded 08/10/17 21:01) description Allergy (Uncoded 08/10/17 21:01) pears Allergy (Uncoded 08/10/17 21:01) SHELFISH Allergy (Uncoded 08/10/17 21:01) CONTINUE taking the following medications cyclobenzaprine 1 tab PO TID PRN 12/31/17 [History] ranitidine HCl 1 tab PO DAILY PRN 12/31/17 [History] spironolactone 1 tab PO DAILY 12/31/17 [History] meclizine 25 mg PO TID PRN 01/01/18 [History] ondansetron HCl 8 mg PO Q6H 01/01/18 [History] New Prescriptions carvedilol 12.5 mg PO BID #0 tab 01/02/18 [Rx] rifampin 300 mg PO BID #20 cap 01/02/18 [Rx] - Review of Systems Constitutional: Malaise Eyes: No Symptoms Reported ENT: No Symptoms Reported Respiratory: No Symptoms Reported Cardiovascular: No Symptoms Reported Gastrointestinal: No Symptoms Reported Genitourinary: No Symptoms Reported Musculoskeletal: Back Pain Skin: Lesions (MRSA) Neurological: No Symptoms Reported - Physical Exam Vital Signs: Temperature 98.2 F Pulse Rate [Left Radial] 79 Pulse Rate 76 Respiratory Rate 20 Blood Pressure [L] 161/94 Blood Pressure [Right Arm] 136/81 Blood Pressure [Left Arm] 125/87 Blood Pressure 166/92 O2 Sat by Pulse Oximetry 98 Oriented: Normal Eyes: Normal Ear: Normal Nose: Normal Throat: Normal Respiratory: Clear Throughout Cardiovascular: Normal : Normal Auscultation: Bowel Sounds: Normal Palpation: Normal Tenderness: Normal Skin: Wound (Consistent to MRSA - extremities, abd) Musculoskeletal: Back:Lumbar Psychiatric: Normal Mood Description: Calm Affect: Normal - Assessment/Plan (1) MRSA (methicillin resistant Staphylococcus aureus) Status: Acute Plan: antibiotics (2) Hypertension Qualifiers: Hypertension type: essential hypertension Qualified Code(s): I10 - Essential (primary) hypertension Status: Chronic Plan: anti-hypertensives, home meds (3) Obesity, morbid (more than 100 lbs over ideal weight or BMI > 40) Status: Chronic Plan: labs - Allergies Allergies/Adverse Reactions: Allergies Allergy/AdvReac Type Severity Reaction Status Date / Time ciprofloxacin [From Cipro] Allergy Verified 08/10/17 21:01 doxycycline Allergy Verified 08/10/17 21:01 gentamicin Allergy Verified 08/10/17 21:01 iodine Allergy Verified 08/10/17 21:01 latex Allergy Verified 08/10/17 21:01 levofloxacin Allergy Verified 08/10/17 21:01 linezolid Allergy Verified 08/10/17 21:01 Penicillins Allergy Verified 08/10/17 21:01 pineapple Allergy Verified 08/10/17 21:01 pseudoephedrine Allergy Verified 08/10/17 21:01 shrimp Allergy Verified 08/10/17 21:01 Sulfa (Sulfonamide Allergy Verified 08/10/17 21:01 Antibiotics) [SULFA] tetracycline Allergy Verified 08/10/17 21:01 tobramycin Allergy Verified 08/10/17 21:01 adhesive tape Allergy Uncoded 08/10/17 21:01 description Allergy Uncoded 08/10/17 21:01 pears Allergy Uncoded 08/10/17 21:01 SHELFISH Allergy Uncoded 08/10/17 21:01
== END 2018-01-02 18:02 | disposition home or self-care (01) ==
LOC: ICU
PROVIDERS: ADMIT Internal Medicine; ATTEND Internal Medicine
DX: B95.62 Methicillin resistant Staphylococcus aureus infection as the cause of diseases classified elsewhere; R51 Headache; E66.01 Morbid (severe) obesity due to excess calories; Z79.899 Other long term (current) drug therapy; R53.1 Weakness; I16.0 Hypertensive urgency; D72.828 Other elevated white blood cell count; T36.6X5A Adverse effect of rifampicins, initial encounter; I10 Essential (primary) hypertension
CPT/HCPCS: 36415; 71010; 71045; 80053; 81001; 82550; 82553; 82607; 82728; 82746; 83540; 83735; 84132; 84466; 84484; 85025; 87070; 87075; 87077; 87186; 93005; 93010; 96367; 96372; 96374; A4216; A4222; G0378; J1200; J1650; J3480; J7030; J7620

== ENCOUNTER 2018-02-17 11:09 | Inpatient (IN) ==
--- NOTE | 2018-02-17 12:22 | DR.H&P ---
H&P - History & Physical for Day of: H&P Date: 02/17/18 - Chief Complaint Chief Complaint: Head and chest congestion - History of Present Illness History of Present Illness: The patient is a 42-year-old white female who presents to the office with complaint of head and chest congestion 3 weeks. States that she has taken Zithromax. States that it is hard to breathe. Does complain of sore throat. Does not have a nebulizer. States that she is short of breath with exertion. Patient states she is having fever at nighttime. Denies productive cough. States she does feel like she is wheezing. Patient complains of MRSA lesions to her nose inside and out as well as right lower leg. Patient states that she has taken her blood pressure medication. Blood pressure is elevated today. - Past Medical History Past Medical History: Anemia, Anxiety, Arthritis, Depression, Dyslipidemia, GERD, Hypertension Additional Medical History: UTI, Bilateral Knee pain - Past Surgical History Surgical History: Cholecystectomy, Tonsillectomy, Other - Social History Does patient currently use any type of tobacco product: No Have you used tobacco products in the last 12 months: No Type of Tobacco Use: None Does any household member use tobacco: No Alcohol Use: None - Medications Home Medications: ciprofloxacin [From Cipro] Allergy (Verified 08/10/17 21:01) doxycycline Allergy (Verified 08/10/17 21:01) gentamicin Allergy (Verified 08/10/17 21:01) iodine Allergy (Verified 08/10/17 21:01) latex Allergy (Verified 08/10/17 21:01) levofloxacin Allergy (Verified 08/10/17 21:01) linezolid Allergy (Verified 08/10/17 21:01) Penicillins Allergy (Verified 08/10/17 21:01) pineapple Allergy (Verified 08/10/17 21:01) pseudoephedrine Allergy (Verified 08/10/17 21:01) shrimp Allergy (Verified 08/10/17 21:01) Sulfa (Sulfonamide Antibiotics) [SULFA] Allergy (Verified 08/10/17 21:01) tetracycline Allergy (Verified 08/10/17 21:01) tobramycin Allergy (Verified 08/10/17 21:01) adhesive tape Allergy (Uncoded 08/10/17 21:01) description Allergy (Uncoded 08/10/17 21:01) pears Allergy (Uncoded 08/10/17 21:01) SHELFISH Allergy (Uncoded 08/10/17 21:01) - Review of Systems Constitutional: Fever, Chills, Malaise Eyes: No Symptoms Reported ENT: Nose Discharge, Nose Congestion, Throat Pain Respiratory: Cough, Shortness of Breath, SOB with Excertion Cardiovascular: No Symptoms Reported Gastrointestinal: No Symptoms Reported Genitourinary: No Symptoms Reported Musculoskeletal: No Symptoms Reported Skin: Lesions (MRSA to left nare, outer nostril and right lower leg) Neurological: No Symptoms Reported - Physical Exam Vital Signs: Blood Pressure [L] 161/94 Blood Pressure [Right Arm] 136/81 Blood Pressure [Left Arm] 125/87 Blood Pressure 161/94 Oriented: Normal Eyes: Normal Ear: Normal Nose: Normal Throat: Red Respiratory: Diminished Throughout (Coarse) Cardiovascular: Normal : Normal Auscultation: Bowel Sounds: Normal Palpation: Normal Tenderness: Normal Skin: Wound (Left nare, outer nostril and right lower leg) Musculoskeletal: Normal Psychiatric: Normal Mood Description: Flat Affect: Normal Speech Pattern: Clear - Assessment/Plan (1) Acute bronchitis Qualifiers: Bronchitis organism: unspecified organism Qualified Code(s): J20.9 - Acute bronchitis, unspecified Status: Acute Plan: CXR, Labs, Rocephin, CLindamycin (2) MRSA (methicillin resistant Staphylococcus aureus) Status: Acute Plan: Clindamycin (3) Hypertension Qualifiers: Hypertension type: essential hypertension Qualified Code(s): I10 - Essential (primary) hypertension Status: Chronic Plan: Monitor BP, Lopressor PRN - Allergies Allergies/Adverse Reactions: Allergies Allergy/AdvReac Type Severity Reaction Status Date / Time ciprofloxacin [From Cipro] Allergy Verified 08/10/17 21:01 doxycycline Allergy Verified 08/10/17 21:01 gentamicin Allergy Verified 08/10/17 21:01 iodine Allergy Verified 08/10/17 21:01 latex Allergy Verified 08/10/17 21:01 levofloxacin Allergy Verified 08/10/17 21:01 linezolid Allergy Verified 08/10/17 21:01 Penicillins Allergy Verified 08/10/17 21:01 pineapple Allergy Verified 08/10/17 21:01 pseudoephedrine Allergy Verified 08/10/17 21:01 shrimp Allergy Verified 08/10/17 21:01 Sulfa (Sulfonamide Allergy Verified 08/10/17 21:01 Antibiotics) [SULFA] tetracycline Allergy Verified 08/10/17 21:01 tobramycin Allergy Verified 08/10/17 21:01 adhesive tape Allergy Uncoded 08/10/17 21:01 description Allergy Uncoded 08/10/17 21:01 pears Allergy Uncoded 08/10/17 21:01 SHELFISH Allergy Uncoded 08/10/17 21:01
[2018-02-17] MEDS ORDERED: TUSSIONEX PENNKINETIC SUSP PO PRN (14:16)
[2018-02-17] MEDS ORDERED: LOPRESSOR INJ 5 MG AMP IVP PRN (14:16)
[2018-02-17 14:52] LABS: BASOPHILS # (AUTO) 0.1 X10^3/uL (0.0-0.1); BASOPHILS % (AUTO) 1.2 % (0.2-1.0); EOSINOPHILS # (AUTO) 0.1 x10^3/uL (0.0-0.2); EOSINOPHILS % (AUTO) 1.4 % (0.9-2.9); HEMATOCRIT 37.7 % (36.0-47.0); HEMOGLOBIN 12.2 g/dL (12.0-16.0); MEAN CORPUSCULAR HEMOGLOBIN 22.6 pg (27.0-34.0); MEAN CORPUSCULAR HGB CONC 32.5 g/dL (33.0-35.0); MEAN CORPUSCULAR VOLUME 69.5 fL (80.0-100.0); MEAN PLATELET VOLUME 7.3 fL (7.4-11.0); MONOCYTES # (AUTO) 1.2 x10^3/uL (0.3-0.8); NEUTROPHILS # (AUTO) 7.2 x10^3/uL (2.2-4.8); NEUTROPHILS % (AUTO) 67.4 % (42.0-75.0); PLATELET COUNT 412 X10^3/uL (150.0-450.0); RED BLOOD COUNT 5.42 X10^6/uL (3.5-5.4); RED CELL DISTRIBUTION WIDTH 17.1 % (11.6-16.5); WHITE BLOOD COUNT 10.7 X10^3/uL (3.6-10.0)
[2018-02-17 15:02] LABS: ANISOCYTOSIS SLIGHT; HYPOCHROMASIA 1+; MICROCYTOSIS 1+; PLATELET MORPHOLOGY COMMENT NORMAL (NORMAL)
[2018-02-17 15:03] LABS: ALANINE AMINOTRANSFERASE 21 Units/L (12-78); ALKALINE PHOSPHATASE 109 Units/L (46-116); ASPARTATE AMINO TRANSFERASE 13 Units/L (15-37); BLOOD UREA NITROGEN 7 mg/dL (7-18); CALCIUM 8.3 mg/dL (8.5-10.1); CARBON DIOXIDE 20.8 mmol/L (21-32); CHLORIDE 102 mmol/L (98-107); COR CA(FOR HYPOALB) 9.1 mg/dL (8.5-10.1); CREATININE 0.92 mg/dL (0.55-1.02); SODIUM 136 mmol/L (136-145); TOTAL PROTEIN 8.3 g/dL (6.4-8.2); eGFR NON BLACK RACES > 60 (>60)
[2018-02-17] MEDS ORDERED: NS 1/2 1000 ML IV 1,000 ML IV ONE (15:17)
[2018-02-17] MEDS: CLEOCIN 300 MG IV PREMIX 300 MG/50 ML BAG IV SCH ×2 (15:25→22:58)
[2018-02-17] MEDS: ROCEPHIN VIAL 1 GRAM IVP SCH (15:25)
[2018-02-17] MEDS: NS 1/2 1000 ML IV 1,000 ML IV SCH (15:25)
[2018-02-17] MEDS: ROBITUSSIN DM PO SCH ×3 (15:25→20:26)
[2018-02-17] MEDS ORDERED: SALINE 3% 15 ML NEB TX NEB ONE (15:33)
[2018-02-17] MEDS: PROVENTIL NEB TX 0.083% 2.5MG/ 3ML NEB SCH ×3 (15:36→20:11)
[2018-02-17 15:46] VITALS: BMI 56.5
--- NOTE | 2018-02-17 16:17 | RAD ---
HISTORY: Bronchitis fever coughing Study: Two-view chest Comparison: One view chest 12/31/2017 and 10/08/2017 Technique: Soft tissues and bony thorax are normal . The heart size , configuration airway and vascularity are normal. The lungs are clear without infiltrates or effusions. There is no hilar or mediastinal adenopathy. IMPRESSION: 1. No acute cardiopulmonary process ease and no change from the prior portable chest dated 12/31/2017. Reported By:
[2018-02-18] MEDS: NS 1/2 1000 ML IV 1,000 ML IV SCH ×3 (04:00→18:05)
[2018-02-18 05:22] LABS: BASOPHILS # (AUTO) 0.1 X10^3/uL (0.0-0.1); BASOPHILS % (AUTO) 0.8 % (0.2-1.0); EOSINOPHILS # (AUTO) 0.2 x10^3/uL (0.0-0.2); EOSINOPHILS % (AUTO) 1.8 % (0.9-2.9); HEMATOCRIT 32.7 % (36.0-47.0); HEMOGLOBIN 10.4 g/dL (12.0-16.0); LYMPHOCYTES # (AUTO) 1.8 X10^3/uL (1.3-2.9); LYMPHOCYTES % (AUTO) 22.2 % (21.0-51.0); MEAN CORPUSCULAR HEMOGLOBIN 22.1 pg (27.0-34.0); MEAN CORPUSCULAR HGB CONC 31.9 g/dL (33.0-35.0); MEAN CORPUSCULAR VOLUME 69.5 fL (80.0-100.0); MEAN PLATELET VOLUME 7.4 fL (7.4-11.0); MONOCYTES % (AUTO) 11.6 % (0.0-13.0); NEUTROPHILS # (AUTO) 5.3 x10^3/uL (2.2-4.8); NEUTROPHILS % (AUTO) 63.6 % (42.0-75.0); PLATELET COUNT 322 X10^3/uL (150.0-450.0); WHITE BLOOD COUNT 8.3 X10^3/uL (3.6-10.0)
[2018-02-18 05:27] LABS: ALANINE AMINOTRANSFERASE 16 Units/L (12-78); ALBUMIN 2.5 g/dL (3.4-5.0); ALKALINE PHOSPHATASE 86 Units/L (46-116); ASPARTATE AMINO TRANSFERASE 10 Units/L (15-37); BLOOD UREA NITROGEN 8 mg/dL (7-18); CALCIUM 7.9 mg/dL (8.5-10.1); CARBON DIOXIDE 24.1 mmol/L (21-32); CHLORIDE 102 mmol/L (98-107); COR CA(FOR HYPOALB) 9.1 mg/dL (8.5-10.1); COR NA(FOR HYPERGLY) 137 mmol/L (136-145); CREATININE 0.94 mg/dL (0.55-1.02); SODIUM 137 mmol/L (136-145); TOTAL PROTEIN 6.9 g/dL (6.4-8.2); eGFR NON BLACK RACES > 60 (>60)
[2018-02-18] MEDS: CLEOCIN 300 MG IV PREMIX 300 MG/50 ML BAG IV SCH ×3 (05:55→22:00)
[2018-02-18 06:04] LABS: ANISOCYTOSIS SLIGHT; HYPOCHROMASIA 1+; MICROCYTOSIS 1+; PLATELET MORPHOLOGY COMMENT NORMAL (NORMAL)
[2018-02-18] MEDS: ROCEPHIN VIAL 1 GRAM IVP SCH (08:38)
[2018-02-18] MEDS: ROBITUSSIN DM PO SCH ×4 (08:38→20:00)
[2018-02-18] MEDS ORDERED: NS 1/2 1000 ML IV 1,000 ML IV ONE (08:40)
[2018-02-18] MEDS: PROVENTIL NEB TX 0.083% 2.5MG/ 3ML NEB SCH ×4 (09:26→20:06)
[2018-02-18] MEDS: PATIENT'S HOME MEDICATION PO SCH (13:16)
[2018-02-18] MEDS ORDERED: ZOFRAN INJ 4 MG VIAL IVP PRN (19:34)
[2018-02-18] MEDS: NORCO 5/325 MG TAB PO PRN (19:57)
--- NOTE | 2018-02-18 20:10 | RAD ---
Exam: Portable chest History: 42-year-old female, status post central line placement. Comparison: Previous chest radiograph from 02/17/2018. Findings: Patient is status post placement of a left subclavian line. Tip of the catheter extends to the superior vena cava. No pneumothorax is seen. Mild cardiomegaly is again noted. No significant vascular congestion. Lungs are clear with no infiltrate or significant effusion on either side. Impression: 1. Status post placement of left subclavian line. Tip of catheter in SVC. No pneumothorax. 2. Mild persistent cardiomegaly Reported By:
[2018-02-19] MEDS: NORCO 5/325 MG TAB PO PRN ×2 (02:30→09:47)
[2018-02-19] MEDS: CLEOCIN 300 MG IV PREMIX 300 MG/50 ML BAG IV SCH (05:11)
[2018-02-19 05:16] LABS: BASOPHILS # (AUTO) 0.1 X10^3/uL (0.0-0.1); BASOPHILS % (AUTO) 1.1 % (0.2-1.0); EOSINOPHILS # (AUTO) 0.2 x10^3/uL (0.0-0.2); EOSINOPHILS % (AUTO) 1.8 % (0.9-2.9); HEMATOCRIT 33.6 % (36.0-47.0); HEMOGLOBIN 10.8 g/dL (12.0-16.0); LYMPHOCYTES # (AUTO) 1.7 X10^3/uL (1.3-2.9); LYMPHOCYTES % (AUTO) 19.4 % (21.0-51.0); MEAN CORPUSCULAR HEMOGLOBIN 22.3 pg (27.0-34.0); MEAN CORPUSCULAR HGB CONC 32.2 g/dL (33.0-35.0); MEAN PLATELET VOLUME 7.3 fL (7.4-11.0); MONOCYTES # (AUTO) 0.9 x10^3/uL (0.3-0.8); MONOCYTES % (AUTO) 10.5 % (0.0-13.0); NEUTROPHILS % (AUTO) 67.2 % (42.0-75.0); PLATELET COUNT 305 X10^3/uL (150.0-450.0); RED BLOOD COUNT 4.86 X10^6/uL (3.5-5.4); RED CELL DISTRIBUTION WIDTH 16.8 % (11.6-16.5)
[2018-02-19 05:23] LABS: HYPOCHROMASIA 1+; MICROCYTOSIS 1+; PLATELET MORPHOLOGY COMMENT NORMAL (NORMAL)
[2018-02-19 05:25] LABS: ALANINE AMINOTRANSFERASE 13 Units/L (12-78); ALBUMIN 2.5 g/dL (3.4-5.0); ALKALINE PHOSPHATASE 91 Units/L (46-116); ASPARTATE AMINO TRANSFERASE 10 Units/L (15-37); BLOOD UREA NITROGEN 9 mg/dL (7-18); CALCIUM 7.9 mg/dL (8.5-10.1); CARBON DIOXIDE 24.2 mmol/L (21-32); CHLORIDE 103 mmol/L (98-107); COR CA(FOR HYPOALB) 9.1 mg/dL (8.5-10.1); COR NA(FOR HYPERGLY) 139 mmol/L (136-145); CREATININE 0.94 mg/dL (0.55-1.02); SODIUM 138 mmol/L (136-145); TOTAL PROTEIN 7.2 g/dL (6.4-8.2); eGFR NON BLACK RACES > 60 (>60)
[2018-02-19] MEDS: PROVENTIL NEB TX 0.083% 2.5MG/ 3ML NEB SCH ×4 (08:03→20:30)
[2018-02-19] MEDS ORDERED: NS 1/2 1000 ML IV 1,000 ML IV ONE (09:46)
[2018-02-19] MEDS: ROBITUSSIN DM PO SCH ×5 (09:47→21:05)
[2018-02-19] MEDS: NS 1/2 1000 ML IV 1,000 ML IV SCH ×2 (09:47→23:59)
[2018-02-19] MEDS: ROCEPHIN VIAL 1 GRAM IVP SCH (09:47)
[2018-02-19] MEDS: MILK OF MAGNESIA PO SCH ×3 (09:49→21:18)
[2018-02-19] MEDS ORDERED: FLEXERIL TAB 10 MG PO PRN (09:50)
[2018-02-19] MEDS ORDERED: ANTIVERT TAB 25 MG PO PRN (09:50)
[2018-02-19] MEDS ORDERED: ZOFRAN TAB 4 MG PO PRN (09:50)
[2018-02-19] MEDS ORDERED: ZANTAC PO PRN (09:50)
[2018-02-19] MEDS ORDERED: NORCO 10/325 TAB PO PRN (09:50)
[2018-02-19] MEDS: PATIENT'S HOME MEDICATION PO SCH (09:51)
[2018-02-19] MEDS: COREG TAB 25 MG PO SCH ×2 (11:42→21:05)
[2018-02-19] MEDS: ZITHROMAX INJ 500 MG VIAL 500 MG in NS 250 ML IV 250 ML IV SCH (11:43)
[2018-02-19] MEDS: MUCOMYST 20% 200 MG/ML NEB SCH ×4 (12:05→20:30)
[2018-02-19] MEDS: PULMICORT NEB TX 0.5 MG NEB SCH ×2 (12:05→20:30)
[2018-02-19] MEDS: PHENERGAN TAB 25 MG PO SCH ×2 (13:35→21:05)
[2018-02-19] MEDS ORDERED: LEXAPRO ONE (20:06)
[2018-02-19] MEDS: PriLOSEC PO SCH (21:05)
[2018-02-19] MEDS: COLACE CAP 100 MG PO SCH (21:05)
[2018-02-19] MEDS: LEXAPRO PO SCH (21:05)
[2018-02-19] MEDS: KLONOPIN TAB 1 MG PO PRN (21:13)
[2018-02-19] MEDS: CYMBALTA PO SCH (21:13)
[2018-02-20] MEDS ORDERED: NS 1/2 1000 ML IV 1,000 ML IV ONE ×2 (00:55→18:26)
[2018-02-20] MEDS: NS 1/2 1000 ML IV 1,000 ML IV SCH ×2 (03:34→17:20)
[2018-02-20 05:22] LABS: BASOPHILS # (AUTO) 0.1 X10^3/uL (0.0-0.1); BASOPHILS % (AUTO) 1.2 % (0.2-1.0); EOSINOPHILS # (AUTO) 0.3 x10^3/uL (0.0-0.2); EOSINOPHILS % (AUTO) 2.7 % (0.9-2.9); HEMATOCRIT 33.1 % (36.0-47.0); HEMOGLOBIN 10.6 g/dL (12.0-16.0); LYMPHOCYTES # (AUTO) 1.9 X10^3/uL (1.3-2.9); LYMPHOCYTES % (AUTO) 19.1 % (21.0-51.0); MEAN CORPUSCULAR HEMOGLOBIN 22.2 pg (27.0-34.0); MEAN CORPUSCULAR HGB CONC 32.2 g/dL (33.0-35.0); MEAN PLATELET VOLUME 7.3 fL (7.4-11.0); MONOCYTES % (AUTO) 10.1 % (0.0-13.0); NEUTROPHILS # (AUTO) 6.8 x10^3/uL (2.2-4.8); NEUTROPHILS % (AUTO) 66.9 % (42.0-75.0); PLATELET COUNT 298 X10^3/uL (150.0-450.0); WHITE BLOOD COUNT 10.1 X10^3/uL (3.6-10.0)
[2018-02-20] MEDS: PHENERGAN TAB 25 MG PO SCH ×3 (05:24→21:28)
[2018-02-20 05:34] LABS: ALANINE AMINOTRANSFERASE 10 Units/L (12-78); ALBUMIN 2.4 g/dL (3.4-5.0); ALKALINE PHOSPHATASE 86 Units/L (46-116); ASPARTATE AMINO TRANSFERASE 8 Units/L (15-37); BLOOD UREA NITROGEN 8 mg/dL (7-18); CALCIUM 7.8 mg/dL (8.5-10.1); CARBON DIOXIDE 21.4 mmol/L (21-32); CHLORIDE 104 mmol/L (98-107); COR CA(FOR HYPOALB) 9.1 mg/dL (8.5-10.1); COR NA(FOR HYPERGLY) 138 mmol/L (136-145); CREATININE 0.98 mg/dL (0.55-1.02); SODIUM 137 mmol/L (136-145); TOTAL PROTEIN 6.9 g/dL (6.4-8.2); eGFR NON BLACK RACES > 60 (>60)
[2018-02-20 05:59] LABS: HYPOCHROMASIA 1+; MICROCYTOSIS 1+; PLATELET MORPHOLOGY COMMENT NORMAL (NORMAL)
[2018-02-20] MEDS: MUCOMYST 20% 200 MG/ML NEB SCH ×4 (08:45→20:51)
[2018-02-20] MEDS: PROVENTIL NEB TX 0.083% 2.5MG/ 3ML NEB SCH ×4 (08:45→20:51)
[2018-02-20] MEDS: PULMICORT NEB TX 0.5 MG NEB SCH ×2 (08:45→20:51)
[2018-02-20] MEDS ORDERED: NORETHINDRONE AC ETH ESTRADIOL PO SCH (09:00)
[2018-02-20] MEDS: ROCEPHIN VIAL 1 GRAM IVP SCH (09:13)
[2018-02-20] MEDS: ALDACTONE TAB 25 MG PO SCH (09:14)
[2018-02-20] MEDS: COREG TAB 25 MG PO SCH ×2 (09:14→20:47)
[2018-02-20] MEDS: COZAAR PO SCH (09:14)
[2018-02-20] MEDS: ROBITUSSIN DM PO SCH ×4 (09:14→20:46)
[2018-02-20] MEDS: PROCARDIA XL PO SCH (09:14)
[2018-02-20] MEDS: PriLOSEC PO SCH ×2 (09:14→20:48)
[2018-02-20] MEDS: ZITHROMAX INJ 500 MG VIAL 500 MG in NS 250 ML IV 250 ML IV SCH (09:15)
[2018-02-20] MEDS: MILK OF MAGNESIA PO SCH ×2 (12:06→20:48)
[2018-02-20] MEDS: BACTROBAN TOPICAL OINT TOP SCH ×3 (14:04→21:27)
[2018-02-20] MEDS: PATIENT'S HOME MEDICATION PO SCH (14:04)
[2018-02-20] MEDS: MOTRIN TAB 800 MG PO PRN ×2 (14:07→20:48)
[2018-02-20] MEDS ORDERED: LEXAPRO ONE (19:13)
[2018-02-20] MEDS: CYMBALTA PO SCH (20:46)
[2018-02-20] MEDS: COLACE CAP 100 MG PO SCH (20:47)
[2018-02-20] MEDS: LEXAPRO PO SCH (20:47)
[2018-02-20] MEDS: KLONOPIN TAB 1 MG PO PRN (20:48)
[2018-02-21] MEDS ORDERED: NS 1/2 1000 ML IV 1,000 ML IV ONE (03:24)
[2018-02-21] MEDS: NS 1/2 1000 ML IV 1,000 ML IV SCH (03:25)
[2018-02-21] MEDS: PHENERGAN TAB 25 MG PO SCH (05:39)
[2018-02-21] MEDS: BACTROBAN TOPICAL OINT TOP SCH (05:39)
[2018-02-21 06:11] LABS: BASOPHILS # (AUTO) 0.1 X10^3/uL (0.0-0.1); BASOPHILS % (AUTO) 0.7 % (0.2-1.0); EOSINOPHILS # (AUTO) 0.3 x10^3/uL (0.0-0.2); EOSINOPHILS % (AUTO) 3.2 % (0.9-2.9); HEMATOCRIT 31.7 % (36.0-47.0); HEMOGLOBIN 10.2 g/dL (12.0-16.0); LYMPHOCYTES # (AUTO) 2.6 X10^3/uL (1.3-2.9); LYMPHOCYTES % (AUTO) 30.3 % (21.0-51.0); MEAN CORPUSCULAR HEMOGLOBIN 22.5 pg (27.0-34.0); MEAN CORPUSCULAR HGB CONC 32.2 g/dL (33.0-35.0); MEAN CORPUSCULAR VOLUME 69.9 fL (80.0-100.0); MEAN PLATELET VOLUME 7.4 fL (7.4-11.0); MONOCYTES # (AUTO) 0.9 x10^3/uL (0.3-0.8); MONOCYTES % (AUTO) 10.3 % (0.0-13.0); NEUTROPHILS # (AUTO) 4.8 x10^3/uL (2.2-4.8); NEUTROPHILS % (AUTO) 55.5 % (42.0-75.0); PLATELET COUNT 284 X10^3/uL (150.0-450.0); RED BLOOD COUNT 4.53 X10^6/uL (3.5-5.4); RED CELL DISTRIBUTION WIDTH 16.6 % (11.6-16.5); WHITE BLOOD COUNT 8.6 X10^3/uL (3.6-10.0)
[2018-02-21 06:12] LABS: ALANINE AMINOTRANSFERASE 10 Units/L (12-78); ALBUMIN 2.3 g/dL (3.4-5.0); ALKALINE PHOSPHATASE 82 Units/L (46-116); ASPARTATE AMINO TRANSFERASE 9 Units/L (15-37); BLOOD UREA NITROGEN 11 mg/dL (7-18); CALCIUM 7.8 mg/dL (8.5-10.1); CARBON DIOXIDE 22.2 mmol/L (21-32); CHLORIDE 105 mmol/L (98-107); COR CA(FOR HYPOALB) 9.2 mg/dL (8.5-10.1); COR NA(FOR HYPERGLY) 140 mmol/L (136-145); CREATININE 0.84 mg/dL (0.55-1.02); SODIUM 139 mmol/L (136-145); TOTAL PROTEIN 6.6 g/dL (6.4-8.2); eGFR NON BLACK RACES > 60 (>60)
[2018-02-21 06:55] LABS: HYPOCHROMASIA 1+; MICROCYTOSIS 1+; PLATELET MORPHOLOGY COMMENT NORMAL (NORMAL)
[2018-02-21] MEDS ORDERED: NS 100 ML IV + SPIKE MINIBAG* 100 ML IV ONE (08:22)
[2018-02-21] MEDS: ZITHROMAX INJ 500 MG VIAL 500 MG in NS 250 ML IV 250 ML IV SCH (09:11)
[2018-02-21] MEDS: MILK OF MAGNESIA PO SCH ×2 (09:12)
[2018-02-21] MEDS: ROBITUSSIN DM PO SCH (09:12)
[2018-02-21] MEDS: PROCARDIA XL PO SCH (09:13)
[2018-02-21] MEDS: COREG TAB 25 MG PO SCH (09:13)
[2018-02-21] MEDS: PriLOSEC PO SCH (09:13)
[2018-02-21] MEDS: COZAAR PO SCH (09:13)
[2018-02-21] MEDS: ALDACTONE TAB 25 MG PO SCH (09:22)
[2018-02-21] MEDS: PATIENT'S HOME MEDICATION PO SCH (09:22)
[2018-02-21] MEDS: PROVENTIL NEB TX 0.083% 2.5MG/ 3ML NEB SCH (09:49)
[2018-02-21] MEDS: PULMICORT NEB TX 0.5 MG NEB SCH (09:49)
[2018-02-21] MEDS: MUCOMYST 20% 200 MG/ML NEB SCH (09:49)
[2018-02-21] MEDS: ROCEPHIN VIAL 1 GRAM IVP SCH (10:42)
--- NOTE | 2018-02-21 11:06 | RAD ---
STUDY: CHEST, TWO VIEWS History: Bronchitis. Fever and coughing. Shortness of breath Comparison: February 18, 2018 Findings: The trachea is midline. There is some prominence of the central bronchopulmonary markings in both lungs. There is no evidence of consolidation, significant infiltrate, effusion, or pneumothorax. There is mild cardiomegaly. The mediastinum and osseous structures are unremarkable. Note is made of a left-sided subclavian central venous catheter in place, the tip of which projects over the SVC. IMPRESSION: 1. Bronchitis versus reactive airway disease. 2. Cardiomegaly. Reported By:
[2018-02-21 13:07] VITALS: BP 125/74
== END 2018-02-21 13:20 | disposition home or self-care (01) | DRG 203 ==
LOC: MED/SURG 13:46
PROVIDERS: ADMIT Internal Medicine; ATTEND Internal Medicine
DX: B95.62 Methicillin resistant Staphylococcus aureus infection as the cause of diseases classified elsewhere; J20.8 Acute bronchitis due to other specified organisms; X58.XXXA Exposure to other specified factors, initial encounter; E78.2 Mixed hyperlipidemia; K21.9 Gastro-esophageal reflux disease without esophagitis; R06.02 Shortness of breath; F32.89 Other specified depressive episodes; S80.921A Unspecified superficial injury of right lower leg, initial encounter; F41.8 Other specified anxiety disorders; I10 Essential (primary) hypertension; I87.2 Venous insufficiency (chronic) (peripheral); E66.01 Morbid (severe) obesity due to excess calories
CPT/HCPCS: 36415; 36556; 71010; 71020; 71045; 71046; 80053; 85025; 87040; 87070; 87075; 87077; 87186; 87205; 94640; 94760; A4222; Q0169; S0077; J0456; J0696; J2405; J3490; J7050; J7608; J7613; J7626

== ENCOUNTER 2018-09-22 17:12 | Observation (INO) ==
[2018-09-22] MEDS ORDERED: ROCEPHIN VIAL 1 GRAM IVP SCH (19:08)
[2018-09-22] MEDS ORDERED: NS 1000 ML 1,000 ML ONE (19:12)
[2018-09-22 19:37] VITALS: BMI 57.9
[2018-09-22] MEDS: NS 1000 ML 1,000 ML IV SCH (19:38)
[2018-09-22 19:48] LABS: BASOPHILS # (AUTO) 0.2 X10^3/uL (0.0-0.1); BASOPHILS % (AUTO) 1.2 % (0.2-1.0); EOSINOPHILS # (AUTO) 0.1 x10^3/uL (0.0-0.2); HEMATOCRIT 36.5 % (36.0-47.0); HEMOGLOBIN 11.9 g/dL (12.0-16.0); LYMPHOCYTES # (AUTO) 3.5 X10^3/uL (1.3-2.9); LYMPHOCYTES % (AUTO) 24.6 % (21.0-51.0); MEAN CORPUSCULAR HGB CONC 32.6 g/dL (33.0-35.0); MEAN CORPUSCULAR VOLUME 70.5 fL (80.0-100.0); MEAN PLATELET VOLUME 6.9 fL (7.4-11.0); MONOCYTES # (AUTO) 0.7 x10^3/uL (0.3-0.8); NEUTROPHILS # (AUTO) 9.6 x10^3/uL (2.2-4.8); NEUTROPHILS % (AUTO) 68.2 % (42.0-75.0); PLATELET COUNT 435 X10^3/uL (150.0-450.0); RED BLOOD COUNT 5.17 X10^6/uL (3.5-5.4); WHITE BLOOD COUNT 14.1 X10^3/uL (3.6-10.0)
[2018-09-22 19:54] LABS: ALANINE AMINOTRANSFERASE 11 Units/L (12-78); ALBUMIN 3.1 g/dL (3.4-5.0); ALKALINE PHOSPHATASE 88 Units/L (46-116); AMYLASE 69 Units/L (25-115); ASPARTATE AMINO TRANSFERASE 10 Units/L (15-37); BLOOD UREA NITROGEN 10 mg/dL (7-18); CALCIUM 9.4 mg/dL (8.5-10.1); CHLORIDE 100 mmol/L (98-107); COR CA(FOR HYPOALB) 10.1 mg/dL (8.5-10.1); COR NA(FOR HYPERGLY) 134 mmol/L (136-145); CREATININE 1.05 mg/dL (0.55-1.02); LIPASE 93 Units/L (73-393); SODIUM 134 mmol/L (136-145); TOTAL PROTEIN 8.1 g/dL (6.4-8.2); eGFR NON BLACK RACES > 60 (>60)
[2018-09-22 20:07] LABS: HYPOCHROMASIA 1+; PLATELET MORPHOLOGY COMMENT NORMAL (NORMAL)
[2018-09-23 00:35] LABS: BILIRUBIN,URINE NEGATIVE (NEGATIVE); BLOOD/HEMOGLOBIN,URINE 2+ (NEGATIVE); GLUCOSE, URINE NEGATIVE (NEGATIVE); KETONES,URINE NEGATIVE (NEGATIVE); LEUKOCYTE ESTERASE ,URINE 1+ (NEGATIVE); NITRITES,URINE NEGATIVE (NEGATIVE); PROTEIN,URINE 1+ (NEGATIVE); UROBILINOGEN,URINE 1+ (NORMAL)
[2018-09-23 00:48] LABS: APPEARANCE,URINE CLEAR (CLEAR); BACTERIA,URINE NEGATIVE /HPF (NEGATIVE); COLOR,URINE DARK YELLOW (YELLOW); RBC,URINE 0-2 /HPF (NONE SEEN); SQUAMOUS EPITHELIAL CELL,UR RARE /HPF (NEGATIVE)
[2018-09-23 06:01] LABS: BASOPHILS # (AUTO) 0.1 X10^3/uL (0.0-0.1); BASOPHILS % (AUTO) 0.9 % (0.2-1.0); EOSINOPHILS # (AUTO) 0.1 x10^3/uL (0.0-0.2); EOSINOPHILS % (AUTO) 1.3 % (0.9-2.9); HEMATOCRIT 32.9 % (36.0-47.0); HEMOGLOBIN 10.7 g/dL (12.0-16.0); LYMPHOCYTES # (AUTO) 2.7 X10^3/uL (1.3-2.9); LYMPHOCYTES % (AUTO) 27.7 % (21.0-51.0); MEAN CORPUSCULAR HEMOGLOBIN 23.1 pg (27.0-34.0); MEAN CORPUSCULAR HGB CONC 32.6 g/dL (33.0-35.0); MEAN CORPUSCULAR VOLUME 70.9 fL (80.0-100.0); MONOCYTES # (AUTO) 0.9 x10^3/uL (0.3-0.8); MONOCYTES % (AUTO) 8.6 % (0.0-13.0); NEUTROPHILS # (AUTO) 6.1 x10^3/uL (2.2-4.8); NEUTROPHILS % (AUTO) 61.5 % (42.0-75.0); PLATELET COUNT 341 X10^3/uL (150.0-450.0); RED BLOOD COUNT 4.65 X10^6/uL (3.5-5.4); RED CELL DISTRIBUTION WIDTH 15.7 % (11.6-16.5); WHITE BLOOD COUNT 9.9 X10^3/uL (3.6-10.0)
[2018-09-23] MEDS: NORCO 10/325 TAB PO PRN ×2 (06:10→23:10)
[2018-09-23] MEDS: NS 1000 ML 1,000 ML IV SCH ×3 (06:10→23:14)
[2018-09-23 06:13] LABS: ALANINE AMINOTRANSFERASE 8 Units/L (12-78); ALBUMIN 2.5 g/dL (3.4-5.0); ALKALINE PHOSPHATASE 72 Units/L (46-116); ASPARTATE AMINO TRANSFERASE 10 Units/L (15-37); BLOOD UREA NITROGEN 10 mg/dL (7-18); CALCIUM 8.7 mg/dL (8.5-10.1); CARBON DIOXIDE 23.7 mmol/L (21-32); CHLORIDE 103 mmol/L (98-107); COR CA(FOR HYPOALB) 9.9 mg/dL (8.5-10.1); CREATININE 0.91 mg/dL (0.55-1.02); SODIUM 136 mmol/L (136-145); TOTAL PROTEIN 6.7 g/dL (6.4-8.2); eGFR NON BLACK RACES > 60 (>60)
[2018-09-23 06:34] LABS: HYPOCHROMASIA 1+; PLATELET MORPHOLOGY COMMENT NORMAL (NORMAL)
[2018-09-23] MEDS ORDERED: PHARMACY CONSULT - DOSE _____ XX SCH (08:00)
--- NOTE | 2018-09-23 08:24 | DR.H&P ---
H&P - History & Physical for Day of: H&P Date: 09/22/18 - Chief Complaint Chief Complaint: Dehydration, diarrhea - History of Present Illness History of Present Illness: Patient is a 43 year old female that is a direct admit from Dr. Burnham's office secondary to dehydration. Patient reports diarrhea and one episode of vomiting x2 days. Patient reports dysuria and fever at home. Patient has a PMH of recurrent urinary tract infections. Patient reports that she feels like she has another UTI. UA in office revealed 1+ blood, negative leukocytes or nitrites. Patient will be admitted for further evaluation. - Past Medical History Past Medical History: Anemia, Anxiety, Arthritis, Depression, Dyslipidemia, GERD, Hypertension Additional Medical History: UTI, Bilateral Knee pain - Past Surgical History Surgical History: Cholecystectomy, Tonsillectomy, Other - Social History Does patient currently use any type of tobacco product: No Have you used tobacco products in the last 12 months: No Type of Tobacco Use: None Alcohol Use: None Drug Use: None - Medications Home Medications: ciprofloxacin [From Cipro] Allergy (Verified 08/10/17 21:01) doxycycline Allergy (Verified 08/10/17 21:01) gentamicin Allergy (Verified 08/10/17 21:01) iodine Allergy (Verified 08/10/17 21:01) latex Allergy (Verified 08/10/17 21:01) levofloxacin Allergy (Verified 08/10/17 21:01) linezolid Allergy (Verified 08/10/17 21:01) Penicillins Allergy (Verified 08/10/17 21:01) pineapple Allergy (Verified 08/10/17 21:01) pseudoephedrine Allergy (Verified 08/10/17 21:01) rifampin Allergy (Verified 02/17/18 14:29) shrimp Allergy (Verified 08/10/17 21:01) Sulfa (Sulfonamide Antibiotics) [SULFA] Allergy (Verified 08/10/17 21:01) tetracycline Allergy (Verified 08/10/17 21:01) tobramycin Allergy (Verified 08/10/17 21:01) adhesive tape Allergy (Uncoded 08/10/17 21:01) description Allergy (Uncoded 08/10/17 21:01) pears Allergy (Uncoded 08/10/17 21:01) SEAFOOD Allergy (Uncoded 02/17/18 14:25) SHELFISH Allergy (Uncoded 08/10/17 21:01) CONTINUE taking the following medications cetirizine [Zyrtec] 10 mg PO QDAY 09/22/18 [History] hydroxyzine HCl 25 mg PO BID PRN 09/22/18 [History] naproxen sodium 220 mg PO BID PRN 09/22/18 [History] norethindrone ac-eth estradiol [Ronni 04/06 ()] 1 tab PO QDAY 09/22/18 [Hist ory] - Review of Systems Constitutional: See HPI Eyes: See HPI ENT: See HPI Respiratory: See HPI Cardiovascular: See HPI Gastrointestinal: See HPI Genitourinary: See HPI Musculoskeletal: See HPI Skin: See HPI Neurological: See HPI - Physical Exam Vital Signs: Temperature 97.5 F Pulse Rate [Right Brachial] 69 Respiratory Rate 20 Blood Pressure [L] 137/85 Blood Pressure [Right Arm] 113/56 Blood Pressure [Left Arm] 125/87 Blood Pressure 125/74 O2 Sat by Pulse Oximetry 99 Oriented: Normal Eyes: Normal Ear: Normal Nose: Normal Throat: Normal Respiratory: Clear Throughout Cardiovascular: Normal : Dysuria Auscultation: Bowel Sounds: Normal Palpation: Normal Tenderness: Normal Skin: Decreased [place]urgur Musculoskeletal: Normal Psychiatric: Normal Mood Description: Calm Affect: Angry Speech Pattern: Clear - Assessment/Plan (1) Dehydration Status: Acute Plan: IV hydration - Allergies Allergies/Adverse Reactions: Allergies Allergy/AdvReac Type Severity Reaction Status Date / Time ciprofloxacin [From Cipro] Allergy Verified 08/10/17 21:01 doxycycline Allergy Verified 08/10/17 21:01 gentamicin Allergy Verified 08/10/17 21:01 iodine Allergy Verified 08/10/17 21:01 latex Allergy Verified 08/10/17 21:01 levofloxacin Allergy Verified 08/10/17 21:01 linezolid Allergy Verified 08/10/17 21:01 Penicillins Allergy Verified 08/10/17 21:01 pineapple Allergy Verified 08/10/17 21:01 pseudoephedrine Allergy Verified 08/10/17 21:01 rifampin Allergy Verified 02/17/18 14:29 shrimp Allergy Verified 08/10/17 21:01 Sulfa (Sulfonamide Allergy Verified 08/10/17 21:01 Antibiotics) [SULFA] tetracycline Allergy Verified 08/10/17 21:01 tobramycin Allergy Verified 08/10/17 21:01 adhesive tape Allergy Uncoded 08/10/17 21:01 description Allergy Uncoded 08/10/17 21:01 pears Allergy Uncoded 08/10/17 21:01 SEAFOOD Allergy Uncoded 02/17/18 14:25 SHELFISH Allergy Uncoded 08/10/17 21:01
[2018-09-23] MEDS: ROCEPHIN VIAL 1 GRAM IVP SCH (09:15)
--- NOTE | 2018-09-23 09:36 | RAD ---
History: Nausea and vomiting Study: Acute abdominal series Comparison: CT examination of August 10, 2017 Findings: The lungs are clear and the heart and mediastinum are unremarkable. There are cholecystectomy clips. There is no free intraperitoneal or air-fluid level. No bowel distention is demonstrated. There are surgical clips in the pelvis. There are degenerative changes in the lower lumbar spine. Impression: Negative, no evidence for acute disease Reported By:
[2018-09-23] MEDS ORDERED: MOTRIN TAB 800 MG PO PRN (09:39)
[2018-09-23] MEDS ORDERED: ZANTAC PO PRN (09:42)
[2018-09-23] MEDS ORDERED: ATARAX SYRUP BTL 10MG/5ML PO PRN (09:45)
[2018-09-23] MEDS ORDERED: FLEXERIL TAB 10 MG PO PRN (09:50)
[2018-09-23] MEDS: PriLOSEC PO SCH ×2 (11:00→21:41)
[2018-09-23] MEDS: COREG TAB 25 MG PO SCH ×3 (11:00→23:15)
[2018-09-23] MEDS: ZyrTEC TAB 10 MG PO SCH (11:00)
[2018-09-23] MEDS: COZAAR PO SCH (11:00)
[2018-09-23] MEDS: LOVENOX INJ 40 MG SYR SC SCH (11:01)
--- NOTE | 2018-09-23 14:43 | VAS ---
VENOUS ULTRASOUND DOPPLER EXAMINATION OF THE LEFT LOWER EXTREMITY HISTORY: Leg pain Comparison: None TECHNIQUE: Multiple pineda scale and color flow Doppler images of the deep venous system were obtained of the left lower extremity. FINDINGS: The deep venous system of the left lower extremity was evaluated from the level of the common femoral vein through the popliteal vein. Normal color flow and augmentation can be observed. In addition, normal compression is seen throughout the deep venous system. IMPRESSION: 1. Negative for DVT. Reported By:
--- NOTE | 2018-09-23 18:03 | DR.H&P ---
H&P - History & Physical for Day of: H&P Date: 09/23/18 - Chief Complaint Chief Complaint: 43 WF ADMITTED ON 09/22 WITH ABDOMINAL PAIN, SEVERE DIARRHEA. PT HAS BEEN NPO SINCE ADMISSION, STATES ABD PAIN HAD IMPROVED SINCE ADMISSION. PT CONTINUES WITH HYPERACTIVE BS. STOOL STUDIES AND ABD SERIES ORDERED TODAY, WILL ADVANCE TO CLEAR LIQUIDS SINCE NO VOMTING. PT CO LLE PAIN AND SWELLING, HX OF DVT. VENOUS DOPPLER R/O NEW DVT NEGATIVE - Past Medical History Past Medical History: Anemia, Anxiety, Arthritis, Depression, Dyslipidemia, GERD, Hypertension Additional Medical History: UTI, Bilateral Knee pain - Past Surgical History Surgical History: Cholecystectomy, Tonsillectomy, Other - Social History Does patient currently use any type of tobacco product: No Have you used tobacco products in the last 12 months: No Type of Tobacco Use: None Alcohol Use: None Drug Use: None - Medications Home Medications: ciprofloxacin [From Cipro] Allergy (Verified 08/10/17 21:01) doxycycline Allergy (Verified 08/10/17 21:01) gentamicin Allergy (Verified 08/10/17 21:01) iodine Allergy (Verified 08/10/17 21:01) latex Allergy (Verified 08/10/17 21:01) levofloxacin Allergy (Verified 08/10/17 21:01) linezolid Allergy (Verified 08/10/17 21:01) Penicillins Allergy (Verified 08/10/17 21:01) pineapple Allergy (Verified 08/10/17 21:01) pseudoephedrine Allergy (Verified 08/10/17 21:01) rifampin Allergy (Verified 02/17/18 14:29) shrimp Allergy (Verified 08/10/17 21:01) Sulfa (Sulfonamide Antibiotics) [SULFA] Allergy (Verified 08/10/17 21:01) tetracycline Allergy (Verified 08/10/17 21:01) tobramycin Allergy (Verified 08/10/17 21:01) adhesive tape Allergy (Uncoded 08/10/17 21:01) description Allergy (Uncoded 08/10/17 21:01) pears Allergy (Uncoded 08/10/17 21:01) SEAFOOD Allergy (Uncoded 02/17/18 14:25) SHELFISH Allergy (Uncoded 08/10/17 21:01) CONTINUE taking the following medications cetirizine [Zyrtec] 10 mg PO QDAY 09/22/18 [History] hydroxyzine HCl 25 mg PO BID PRN 09/22/18 [History] naproxen sodium 220 mg PO BID PRN 09/22/18 [History] norethindrone ac-eth estradiol [Ronni 04/06 ()] 1 tab PO QDAY 09/22/18 [History] - Review of Systems Constitutional: Weakness Eyes: No Symptoms Reported ENT: No Symptoms Reported Respiratory: No Symptoms Reported Cardiovascular: No Symptoms Reported, Edema Gastrointestinal: Nausea, Abdominal Pain Musculoskeletal: Back Pain, Leg Pain Skin: No Symptoms Reported Neurological: No Symptoms Reported - Physical Exam Vital Signs: Temperature 98.1 F Pulse Rate [Right Brachial] 71 Respiratory Rate 20 Blood Pressure [L] 124/68 Blood Pressure [Right Arm] 138/81 Blood Pressure [Left Arm] 125/87 Blood Pressure 125/74 O2 Sat by Pulse Oximetry 100 Oriented: Normal Eyes: Normal Ear: Normal Nose: Normal Throat: Normal Respiratory: RLL Diminished, LLL Diminished Cardiovascular: Normal, Edema : Normal Auscultation: Bowel Sounds: Increased Palpation: Normal Tenderness: Diffuse, Mild Skin: Normal Musculoskeletal: Back:Lumbar Psychiatric: Anxiety Affect: Anxious Speech Pattern: Clear, Appropriate - Assessment/Plan (1) Abdominal pain Qualifiers: Status: Acute Plan: NPO, MAY ADVANCE TO CLEAR LIQUIDS WITH IMPROVED NAUSEA. IV HYDRATION, ABD SERIES. STOOL STUDIES, RESUME HOME MEDICATION (2) Diarrhea Status: Acute (3) Obesity, morbid (more than 100 lbs over ideal weight or BMI > 40) Status: Chronic (4) Hypertension Qualifiers: Hypertension type: essential hypertension Qualified Code(s): I10 - Essential (primary) hypertension Status: Chronic - Allergies Allergies/Adverse Reactions: Allergies Allergy/AdvReac Type Severity Reaction Status Date / Time ciprofloxacin [From Cipro] Allergy Verified 08/10/17 21:01 doxycycline Allergy Verified 08/10/17 21:01 gentamicin Allergy Verified 08/10/17 21:01 iodine Allergy Verified 08/10/17 21:01 latex Allergy Verified 08/10/17 21:01 levofloxacin Allergy Verified 08/10/17 21:01 linezolid Allergy Verified 08/10/17 21:01 Penicillins Allergy Verified 08/10/17 21:01 pineapple Allergy Verified 08/10/17 21:01 pseudoephedrine Allergy Verified 08/10/17 21:01 rifampin Allergy Verified 02/17/18 14:29 shrimp Allergy Verified 08/10/17 21:01 Sulfa (Sulfonamide Allergy Verified 08/10/17 21:01 Antibiotics) [SULFA] tetracycline Allergy Verified 08/10/17 21:01 tobramycin Allergy Verified 08/10/17 21:01 adhesive tape Allergy Uncoded 08/10/17 21:01 description Allergy Uncoded 08/10/17 21:01 pears Allergy Uncoded 08/10/17 21:01 SEAFOOD Allergy Uncoded 02/17/18 14:25 SHELFISH Allergy Uncoded 08/10/17 21:01
[2018-09-23] MEDS ORDERED: LEXAPRO ONE (19:34)
[2018-09-23 20:14] LABS: CRYPTOSPORIDIUM PARVUM ANTIGEN NEGATIVE (NEGATIVE); GIARDIA LAMBLIA ANTIGEN NEGATIVE (NEGATIVE); STOOL FOR WBC POSITIVE (NEGATIVE)
[2018-09-23] MEDS: CYMBALTA PO SCH (21:41)
[2018-09-23] MEDS: LEXAPRO PO SCH (21:41)
[2018-09-23] MEDS: KLONOPIN TAB 0.5 MG PO PRN (23:10)
[2018-09-24 05:25] LABS: BASOPHILS # (AUTO) 0.1 X10^3/uL (0.0-0.1); BASOPHILS % (AUTO) 0.9 % (0.2-1.0); EOSINOPHILS # (AUTO) 0.1 x10^3/uL (0.0-0.2); EOSINOPHILS % (AUTO) 1.2 % (0.9-2.9); HEMATOCRIT 35.3 % (36.0-47.0); HEMOGLOBIN 11.3 g/dL (12.0-16.0); LYMPHOCYTES # (AUTO) 3.2 X10^3/uL (1.3-2.9); LYMPHOCYTES % (AUTO) 30.2 % (21.0-51.0); MEAN CORPUSCULAR HEMOGLOBIN 23.1 pg (27.0-34.0); MEAN PLATELET VOLUME 7.1 fL (7.4-11.0); MONOCYTES # (AUTO) 0.7 x10^3/uL (0.3-0.8); MONOCYTES % (AUTO) 6.4 % (0.0-13.0); NEUTROPHILS # (AUTO) 6.6 x10^3/uL (2.2-4.8); NEUTROPHILS % (AUTO) 61.3 % (42.0-75.0); PLATELET COUNT 369 X10^3/uL (150.0-450.0); WHITE BLOOD COUNT 10.7 X10^3/uL (3.6-10.0)
[2018-09-24 05:41] LABS: ALANINE AMINOTRANSFERASE 12 Units/L (12-78); ALBUMIN 2.7 g/dL (3.4-5.0); ALKALINE PHOSPHATASE 77 Units/L (46-116); ASPARTATE AMINO TRANSFERASE 11 Units/L (15-37); BLOOD UREA NITROGEN 6 mg/dL (7-18); CARBON DIOXIDE 24.3 mmol/L (21-32); CHLORIDE 104 mmol/L (98-107); CREATININE 0.91 mg/dL (0.55-1.02); SODIUM 137 mmol/L (136-145); TOTAL PROTEIN 7.3 g/dL (6.4-8.2); eGFR NON BLACK RACES > 60 (>60)
[2018-09-24 05:55] LABS: HYPOCHROMASIA 1+; MICROCYTOSIS SLIGHT; PLATELET MORPHOLOGY COMMENT NORMAL (NORMAL)
[2018-09-24] MEDS: LOVENOX INJ 40 MG SYR SC SCH (09:57)
[2018-09-24] MEDS: COZAAR PO SCH (09:58)
[2018-09-24] MEDS: ZyrTEC TAB 10 MG PO SCH (09:58)
[2018-09-24] MEDS: PriLOSEC PO SCH ×2 (09:59→20:37)
[2018-09-24] MEDS: COREG TAB 25 MG PO SCH ×2 (09:59→20:36)
[2018-09-24] MEDS: ROCEPHIN VIAL 1 GRAM IVP SCH (10:00)
[2018-09-24] MEDS: FLAGYL IV PREMIX 500 MG BAG 500 MG/100 ML BAG IV SCH ×3 (10:08→20:38)
[2018-09-24] MEDS: NS 1000 ML 1,000 ML IV SCH (14:45)
[2018-09-24] MEDS ORDERED: LEXAPRO ONE (20:09)
[2018-09-24] MEDS: LEXAPRO PO SCH (20:37)
[2018-09-24] MEDS: NORCO 10/325 TAB PO PRN (20:37)
[2018-09-24] MEDS: CYMBALTA PO SCH (20:37)
[2018-09-24] MEDS: KLONOPIN TAB 0.5 MG PO PRN (20:45)
[2018-09-24 23:13] LABS: BILIRUBIN,URINE NEGATIVE (NEGATIVE); BLOOD/HEMOGLOBIN,URINE 1+ (NEGATIVE); GLUCOSE, URINE NEGATIVE (NEGATIVE); KETONES,URINE NEGATIVE (NEGATIVE); LEUKOCYTE ESTERASE ,URINE NEGATIVE (NEGATIVE); NITRITES,URINE NEGATIVE (NEGATIVE); PROTEIN,URINE NEGATIVE (NEGATIVE); UROBILINOGEN,URINE NORMAL (NORMAL)
[2018-09-24 23:20] LABS: APPEARANCE,URINE CLEAR (CLEAR); BACTERIA,URINE TRACE /HPF (NEGATIVE); COLOR,URINE YELLOW (YELLOW); MUCUS,URINE FEW /HPF (NEGATIVE); RBC,URINE 0-2 /HPF (NONE SEEN); SQUAMOUS EPITHELIAL CELL,UR FEW /HPF (NEGATIVE)
[2018-09-25] MEDS: FLAGYL IV PREMIX 500 MG BAG 500 MG/100 ML BAG IV SCH ×2 (02:35→08:09)
[2018-09-25] MEDS: NS 1000 ML 1,000 ML IV SCH (02:35)
[2018-09-25 05:14] LABS: BASOPHILS # (AUTO) 0.1 X10^3/uL (0.0-0.1); BASOPHILS % (AUTO) 0.9 % (0.2-1.0); EOSINOPHILS # (AUTO) 0.1 x10^3/uL (0.0-0.2); EOSINOPHILS % (AUTO) 1.4 % (0.9-2.9); HEMATOCRIT 31.2 % (36.0-47.0); HEMOGLOBIN 10.2 g/dL (12.0-16.0); LYMPHOCYTES # (AUTO) 2.3 X10^3/uL (1.3-2.9); LYMPHOCYTES % (AUTO) 27.7 % (21.0-51.0); MEAN CORPUSCULAR HEMOGLOBIN 23.1 pg (27.0-34.0); MEAN CORPUSCULAR HGB CONC 32.6 g/dL (33.0-35.0); MEAN CORPUSCULAR VOLUME 70.8 fL (80.0-100.0); MEAN PLATELET VOLUME 6.9 fL (7.4-11.0); MONOCYTES # (AUTO) 0.8 x10^3/uL (0.3-0.8); MONOCYTES % (AUTO) 9.2 % (0.0-13.0); NEUTROPHILS # (AUTO) 5.1 x10^3/uL (2.2-4.8); NEUTROPHILS % (AUTO) 60.8 % (42.0-75.0); PLATELET COUNT 325 X10^3/uL (150.0-450.0); RED BLOOD COUNT 4.41 X10^6/uL (3.5-5.4); RED CELL DISTRIBUTION WIDTH 15.6 % (11.6-16.5); WHITE BLOOD COUNT 8.4 X10^3/uL (3.6-10.0)
[2018-09-25 05:21] LABS: ALANINE AMINOTRANSFERASE 11 Units/L (12-78); ALBUMIN 2.4 g/dL (3.4-5.0); ALKALINE PHOSPHATASE 67 Units/L (46-116); ASPARTATE AMINO TRANSFERASE 9 Units/L (15-37); BLOOD UREA NITROGEN 5 mg/dL (7-18); CALCIUM 8.5 mg/dL (8.5-10.1); CARBON DIOXIDE 23.1 mmol/L (21-32); CHLORIDE 106 mmol/L (98-107); COR CA(FOR HYPOALB) 9.8 mg/dL (8.5-10.1); CREATININE 0.89 mg/dL (0.55-1.02); SODIUM 138 mmol/L (136-145); TOTAL PROTEIN 6.4 g/dL (6.4-8.2); eGFR NON BLACK RACES > 60 (>60)
[2018-09-25 05:57] LABS: HYPOCHROMASIA 1+; PLATELET MORPHOLOGY COMMENT NORMAL (NORMAL)
[2018-09-25] MEDS ORDERED: KLOR-CON PO PRN (06:01)
[2018-09-25] MEDS ORDERED: K-RIDER 10 MEQ/NS 100 ML 10 MEQ/100 ML BAG IV PRN (06:01)
[2018-09-25] MEDS ORDERED: POTASSIUM CHL 60 MEQ/NS 0.45% 500 ML IV PRN (06:01)
[2018-09-25] MEDS ORDERED: POTASSIUM CHL 40 MEQ/NS 0.45% 500 ML IV PRN (06:01)
[2018-09-25] MEDS ORDERED: MICRO K EXTEN CAP 10 MEQ PO PRN (06:01)
[2018-09-25] MEDS ORDERED: POTASSIUM CHLORIDE LIQ 20 MEQ UDC PO PRN (06:01)
[2018-09-25] MEDS ORDERED: K-DUR TAB 20 MEQ PO PRN (06:01)
[2018-09-25] MEDS: LOVENOX INJ 40 MG SYR SC SCH (08:07)
[2018-09-25] MEDS: ROCEPHIN VIAL 1 GRAM IVP SCH (08:07)
[2018-09-25] MEDS: PriLOSEC PO SCH (08:08)
[2018-09-25] MEDS: COREG TAB 25 MG PO SCH (08:08)
[2018-09-25] MEDS: COZAAR PO SCH (08:08)
[2018-09-25] MEDS: ZyrTEC TAB 10 MG PO SCH (08:09)
[2018-09-25] MEDS: MAGNESIUM SULFATE 1 GRAM/100 mL PREMIX 1 GM/100 ML BAG IV PRN ×2 (08:09→11:10)
[2018-09-25 12:51] VITALS: BP 113/78
== END 2018-09-25 13:00 | disposition home or self-care (01) ==
LOC: MED/SURG
PROVIDERS: ADMIT Internal Medicine; ATTEND Internal Medicine
DX: E86.0 Dehydration; E66.01 Morbid (severe) obesity due to excess calories; E78.2 Mixed hyperlipidemia; K21.9 Gastro-esophageal reflux disease without esophagitis; M79.662 Pain in left lower leg; I10 Essential (primary) hypertension; F41.8 Other specified anxiety disorders; Z87.440 Personal history of urinary (tract) infections; R10.84 Generalized abdominal pain; A04.72 Enterocolitis due to Clostridium difficile, not specified as recurrent; N39.0 Urinary tract infection, site not specified; Z86.718 Personal history of other venous thrombosis and embolism
CPT/HCPCS: 36415; 74022; 80053; 81001; 82150; 82270; 83630; 83690; 83735; 85025; 87040; 87045; 87086; 87324; 87328; 87329; 87427; 87449; 87493; 87899; 93971; 96367; 96372; 96374; A4222; S0030; G0378; J0696; J1650; J3475; J7030

== ENCOUNTER 2020-08-16 16:41 | Observation (INO) ==
[2020-08-16] MEDS ORDERED: FLAGYL TAB 500 MG PO SCH (21:52)
[2020-08-16] MEDS ORDERED: CLEOCIN VIAL 600 MG 900 MG in D5W 50 ML IV 50 ML IV SCH (22:00)
[2020-08-16] MEDS ORDERED: NORCO 5/325 MG TAB PO PRN (23:04)
[2020-08-16 23:10] LABS: BASOPHILS # (AUTO) 0.2 X10^3/uL (0.0-0.1); EOSINOPHILS # (AUTO) 0.2 x10^3/uL (0.0-0.2); MEAN PLATELET VOLUME 7.8 fL (7.4-11.0); MONOCYTES # (AUTO) 1.2 x10^3/uL (0.3-0.8)
[2020-08-16 23:12] LABS: BASOPHILS % (AUTO) 1.3 % (0.2-1.0); EOSINOPHILS % (AUTO) 1.1 % (0.9-2.9); HEMATOCRIT 41.3 % (36.0-47.0); HEMOGLOBIN 13.7 g/dL (12.0-16.0); LYMPHOCYTES # (AUTO) 4.8 X10^3/uL (1.3-2.9); MEAN CORPUSCULAR HEMOGLOBIN 26.3 pg (27.0-34.0); MEAN CORPUSCULAR HGB CONC 33.1 g/dL (33.0-35.0); MEAN CORPUSCULAR VOLUME 79.6 fL (80.0-100.0); MONOCYTES % (AUTO) 7.2 % (0.0-13.0); NEUTROPHILS # (AUTO) 10.7 x10^3/uL (2.2-4.8); NEUTROPHILS % (AUTO) 62.4 % (42.0-75.0); PLATELET COUNT 324 X10^3/uL (150.0-450.0); RED BLOOD COUNT 5.19 X10^6/uL (3.5-5.4); RED CELL DISTRIBUTION WIDTH 14.3 % (11.6-16.5); WHITE BLOOD COUNT 17.1 X10^3/uL (3.6-10.0)
[2020-08-16 23:22] LABS: ALANINE AMINOTRANSFERASE 14 Units/L (12-78); ALBUMIN 3.1 g/dL (3.4-5.0); ALKALINE PHOSPHATASE 89 Units/L (46-116); ASPARTATE AMINO TRANSFERASE 21 Units/L (15-37); BLOOD UREA NITROGEN 10 mg/dL (7-18); CALCIUM 8.9 mg/dL (8.5-10.1); CARBON DIOXIDE 25.7 mmol/L (21-32); CHLORIDE 100 mmol/L (98-107); COR CA(FOR HYPOALB) 9.6 mg/dL (8.5-10.1); CREATININE 0.95 mg/dL (0.55-1.02); SODIUM 138 mmol/L (136-145); eGFR NON BLACK RACES > 60 (>60)
[2020-08-16 23:27] VITALS: BMI 54.9
[2020-08-16 23:32] LABS: PLATELET MORPHOLOGY COMMENT NORMAL (NORMAL)
[2020-08-17] MEDS: FLAGYL TAB 500 MG PO SCH ×3 (02:50→21:05)
[2020-08-17] MEDS: NS 1000 ML 1,000 ML IV SCH ×2 (05:25→14:05)
--- NOTE | 2020-08-17 06:01 | RAD ---
HISTORYSOBSTUDYCHEST, PA/LAT ADULTCOMPARISONNoneTECHNIQUE2 views of the chestFINDINGSThe cardiac silhouette is mildly enlarged. The lungs are without consolidation or segmental lung collapse. No definite pleural effusion or pneumothorax. Soft tissue attenuation limits evaluation.IMPRESSIONCardiomegaly. No acute pulmonary process.Electronically signed by: Krunal Silveira (Aug 17, 2020 05:58:54)
[2020-08-17 06:18] LABS: BASOPHILS # (AUTO) 0.1 X10^3/uL (0.0-0.1); BASOPHILS % (AUTO) 0.9 % (0.2-1.0); EOSINOPHILS # (AUTO) 0.1 x10^3/uL (0.0-0.2); EOSINOPHILS % (AUTO) 1.5 % (0.9-2.9); HEMATOCRIT 38.5 % (36.0-47.0); HEMOGLOBIN 12.9 g/dL (12.0-16.0); MEAN CORPUSCULAR HEMOGLOBIN 26.4 pg (27.0-34.0); MEAN CORPUSCULAR HGB CONC 33.4 g/dL (33.0-35.0); MEAN PLATELET VOLUME 7.3 fL (7.4-11.0); MONOCYTES # (AUTO) 0.8 x10^3/uL (0.3-0.8); MONOCYTES % (AUTO) 8.3 % (0.0-13.0); NEUTROPHILS # (AUTO) 5.7 x10^3/uL (2.2-4.8); NEUTROPHILS % (AUTO) 58.3 % (42.0-75.0); PLATELET COUNT 306 X10^3/uL (150.0-450.0); RED BLOOD COUNT 4.87 X10^6/uL (3.5-5.4); RED CELL DISTRIBUTION WIDTH 14.4 % (11.6-16.5); WHITE BLOOD COUNT 9.7 X10^3/uL (3.6-10.0)
[2020-08-17 06:43] LABS: ALANINE AMINOTRANSFERASE 15 Units/L (12-78); ALBUMIN 2.7 g/dL (3.4-5.0); ALKALINE PHOSPHATASE 81 Units/L (46-116); ASPARTATE AMINO TRANSFERASE 15 Units/L (15-37); BLOOD UREA NITROGEN 9 mg/dL (7-18); CALCIUM 8.8 mg/dL (8.5-10.1); CARBON DIOXIDE 27.8 mmol/L (21-32); CHLORIDE 102 mmol/L (98-107); COR CA(FOR HYPOALB) 9.8 mg/dL (8.5-10.1); COR NA(FOR HYPERGLY) 139 mmol/L (136-145); CREATININE 0.97 mg/dL (0.55-1.02); SODIUM 138 mmol/L (136-145); TOTAL PROTEIN 7.2 g/dL (6.4-8.2); eGFR NON BLACK RACES > 60 (>60)
[2020-08-17 08:32] LABS: BILIRUBIN,URINE NEGATIVE (NEGATIVE); BLOOD/HEMOGLOBIN,URINE 2+ (NEGATIVE); GLUCOSE, URINE NEGATIVE (NEGATIVE); KETONES,URINE NEGATIVE (NEGATIVE); LEUKOCYTE ESTERASE ,URINE 1+ (NEGATIVE); NITRITES,URINE NEGATIVE (NEGATIVE); PROTEIN,URINE NEGATIVE (NEGATIVE); UROBILINOGEN,URINE NORMAL (NORMAL)
[2020-08-17 08:49] LABS: APPEARANCE,URINE CLEAR (CLEAR); COLOR,URINE YELLOW (YELLOW)
[2020-08-17 08:50] LABS: BACTERIA,URINE TRACE /HPF (NEGATIVE); MUCUS,URINE FEW /HPF (NEGATIVE); SQUAMOUS EPITHELIAL CELL,UR MODERATE /HPF (NEGATIVE)
[2020-08-17] MEDS ORDERED: POTASSIUM CHL 60 MEQ/NS 0.45% 500 ML IV PRN (09:06)
[2020-08-17] MEDS ORDERED: K-DUR TAB 20 MEQ PO PRN (09:06)
[2020-08-17] MEDS ORDERED: POTASSIUM CHLORIDE LIQ 20 MEQ UDC PO PRN (09:06)
[2020-08-17] MEDS ORDERED: MICRO K EXTEN CAP 10 MEQ PO PRN (09:06)
[2020-08-17] MEDS ORDERED: KLOR-CON PO PRN (09:06)
[2020-08-17] MEDS ORDERED: K-RIDER 10 MEQ/NS 100 ML 10 MEQ/100 ML BAG IV PRN (09:06)
[2020-08-17] MEDS ORDERED: POTASSIUM CHL 40 MEQ/NS 0.45% 500 ML IV PRN (09:06)
[2020-08-17] MEDS ORDERED: ZOFRAN INJ 4 MG VIAL IVP PRN (12:55)
[2020-08-17] MEDS: CLEOCIN VIAL 600 MG 900 MG in D5W 50 ML IV 50 ML IV SCH ×2 (14:06→21:05)
[2020-08-17] MEDS ORDERED: KLONOPIN TAB 1 MG PO PRN (18:15)
[2020-08-17] MEDS ORDERED: BACTROBAN TOPICAL OINT TOP SCH (18:30)
[2020-08-17] MEDS ORDERED: ZyrTEC TAB 10 MG PO SCH ×2 (19:00)
[2020-08-17] MEDS ORDERED: DESYREL PO SCH (21:00)
[2020-08-17] MEDS: SINGULAIR TAB 10 MG PO SCH (21:06)
[2020-08-17] MEDS: PriLOSEC PO SCH ×2 (21:06→21:07)
[2020-08-17] MEDS: COREG TAB 25 MG PO SCH (21:06)
[2020-08-17] MEDS: BACTROBAN TOPICAL OINT TOP SCH (21:11)
[2020-08-17] MEDS: CYMBALTA PO SCH (21:11)
[2020-08-18] MEDS: NS 1000 ML 1,000 ML IV SCH (02:40)
[2020-08-18] MEDS ORDERED: MAGNESIUM SULFATE 1 GRAM/100 mL PREMIX 1 GM/100 ML BAG IV PRN (05:54)
[2020-08-18] MEDS: CLEOCIN VIAL 600 MG 900 MG in D5W 50 ML IV 50 ML IV SCH ×2 (06:30→09:13)
[2020-08-18] MEDS: FLAGYL TAB 500 MG PO SCH (06:30)
[2020-08-18] MEDS ORDERED: ALDACTONE TAB 25 MG PO SCH (09:00)
[2020-08-18] MEDS ORDERED: COZAAR PO SCH (09:00)
[2020-08-18] MEDS: CYMBALTA PO SCH (09:06)
[2020-08-18] MEDS: SINGULAIR TAB 10 MG PO SCH (09:08)
[2020-08-18] MEDS: COREG TAB 25 MG PO SCH (09:08)
[2020-08-18] MEDS: PriLOSEC PO SCH (09:08)
[2020-08-18] MEDS: BACTROBAN TOPICAL OINT TOP SCH (09:13)
[2020-08-18 09:19] LABS: BASOPHILS # (AUTO) 0.1 X10^3/uL (0.0-0.1); EOSINOPHILS # (AUTO) 0.2 x10^3/uL (0.0-0.2); HEMOGLOBIN 13.2 g/dL (12.0-16.0); MONOCYTES # (AUTO) 0.8 x10^3/uL (0.3-0.8); PLATELET COUNT 316 X10^3/uL (150.0-450.0)
[2020-08-18 09:23] LABS: BASOPHILS % (AUTO) 1.1 % (0.2-1.0); EOSINOPHILS % (AUTO) 1.9 % (0.9-2.9); LYMPHOCYTES % (AUTO) 32.3 % (21.0-51.0); MEAN CORPUSCULAR HEMOGLOBIN 26.1 pg (27.0-34.0); MEAN CORPUSCULAR VOLUME 79.3 fL (80.0-100.0); MONOCYTES % (AUTO) 8.3 % (0.0-13.0); NEUTROPHILS # (AUTO) 5.2 x10^3/uL (2.2-4.8); NEUTROPHILS % (AUTO) 56.4 % (42.0-75.0); RED BLOOD COUNT 5.04 X10^6/uL (3.5-5.4); RED CELL DISTRIBUTION WIDTH 14.1 % (11.6-16.5); WHITE BLOOD COUNT 9.2 X10^3/uL (3.6-10.0)
[2020-08-18 09:29] LABS: ALANINE AMINOTRANSFERASE 15 Units/L (12-78); ALBUMIN 2.9 g/dL (3.4-5.0); ALKALINE PHOSPHATASE 92 Units/L (46-116); ASPARTATE AMINO TRANSFERASE 17 Units/L (15-37); BLOOD UREA NITROGEN 12 mg/dL (7-18); CARBON DIOXIDE 24.1 mmol/L (21-32); CHLORIDE 103 mmol/L (98-107); COR CA(FOR HYPOALB) 9.9 mg/dL (8.5-10.1); COR NA(FOR HYPERGLY) 140 mmol/L (136-145); CREATININE 0.95 mg/dL (0.55-1.02); SODIUM 139 mmol/L (136-145); TOTAL PROTEIN 7.6 g/dL (6.4-8.2); eGFR NON BLACK RACES > 60 (>60)
[2020-08-18 09:44] LABS: PLATELET MORPHOLOGY COMMENT NORMAL (NORMAL)
[2020-08-18 12:07] VITALS: BP 126/67
[2020-08-18 12:59] LABS: CRYPTOSPORIDIUM PARVUM ANTIGEN NEGATIVE (NEGATIVE); GIARDIA LAMBLIA ANTIGEN NEGATIVE (NEGATIVE)
== END 2020-08-18 13:55 | disposition home or self-care (01) ==
LOC: MED/SURG
PROVIDERS: ADMIT Internal Medicine; ATTEND Internal Medicine
DX: Z20.822 Contact with and (suspected) exposure to COVID-19; R26.89 Other abnormalities of gait and mobility; L03.311 Cellulitis of abdominal wall